=== PATIENT | female | born 1945 | race Caucasian/White ===

== ENCOUNTER 2017-11-01 05:31 | Inpatient (IN) | payer OTHER, MEDICARE ==
[2017-11-01] MEDS ORDERED: LR 1,000 ML IV ONE (05:39)
[2017-11-01] MEDS ORDERED: LIDOCAINE 1% 2 ML INJ ID PRN (05:40)
[2017-11-01] MEDS ORDERED: ALBUMIN 5% 250 ML BOTTLE IV ONE (06:05)
[2017-11-01] MEDS ORDERED: DOPamine/DEXTROSE/250 ML BAG IV ONE ×2 (06:25→19:42)
[2017-11-01] MEDS ORDERED: DEXMEDETOMIDINE/NS 4MCG/ML 50 ML BTL IV ONE ×2 (06:25→08:30)
[2017-11-01] MEDS ORDERED: BUPIVACAINE 0.5% 10 ML SDV ONE ×2 (06:56→06:57)
[2017-11-01] MEDS ORDERED: CHLORHEXIDINE GLUC HIBICLENS 118 ML BTL TP ONE (06:57)
[2017-11-01] MEDS ORDERED: THROMBIN (BOVINE) 20,000 UNIT VIAL TP ONE ×2 (06:57→12:32)
[2017-11-01] MEDS ORDERED: ACETAMINOPHEN 500 MG TAB PO ONE (06:58)
[2017-11-01] MEDS ORDERED: morphINE PF 5 MG/10 ML INJ IT ONE (06:58)
[2017-11-01] MEDS ORDERED: BACITRACIN 50,000 UNITS/10 ML SYR IRR ONE ×3 (06:58→12:51)
[2017-11-01] MEDS ORDERED: ceFAZolin 2 GM/SWFI 2 GM/20 ML SYR IVP ONE (06:58)
[2017-11-01] MEDS ORDERED: CITRATE DEXTROSE SOLN 500 ML BAG ONE ×2 (06:58→09:25)
[2017-11-01] MEDS ORDERED: GABAPENTIN 300 MG CAP PO ONE (06:58)
--- NOTE | 2017-11-01 07:07 | PDHPUP ---
History & Physical Update H&P update statement: This history and physical update is based on an assessment of the patient which was completed after admission or registration (within 24 hours), but prior to the surgery/procedure. H&P update: H&P reviewed & patient examined, no change in patient's condition since H&P completed (All questions answered and consents signed. Site marked.)
[2017-11-01] MEDS ORDERED: MIDAZOLAM 2 MG/2 ML VIAL ONE (07:09)
[2017-11-01] MEDS ORDERED: PROPOFOL/EMULSION 500 MG/50 ML BOTTLE IV ONE ×2 (07:16→10:57)
[2017-11-01] MEDS ORDERED: fentaNYL 100 MCG/2 ML INJ ONE (07:16)
[2017-11-01] MEDS ORDERED: PROPOFOL 200 MG/20 ML VIAL ONE (07:22)
[2017-11-01] MEDS ORDERED: DEXMEDETOMIDINE IN 0.9 % NACL 50 ML IV SCH (07:30)
[2017-11-01] MEDS ORDERED: *INFUSION*TRANEX ACID 1,000 MG/NS 50 ML IV ONE (08:00)
[2017-11-01] MEDS ORDERED: NS IV ONE (08:00)
[2017-11-01] MEDS ORDERED: TRANEXAMIC ACID IV ONE (08:00)
--- NOTE | 2017-11-01 09:01 | PDANEPAE ---
ANE Past Medical History - Cardiovascular History Hx Hypertension: No Hx Arrhythmias: No Hx Chest Pain: No Hx Coronary Artery / Peripheral Vascular Disease: No Hx CHF / Valvular Disease: No Hx Palpitations: No Cardiovascular History Comment: BP tends to be low, as does temp - Pulmonary History Hx COPD: Yes Hx Asthma/Reactive Airway Disease: Yes Hx Recent Upper Respiratory Infection: No Hx Oxygen in Use at Home: No Hx Sleep Apnea: No Sleep Apnea Screening Result - Last Documented: Negative Pulmonary History Comment: mild COPD, ASTHMA - Neurologic History Hx Cerebrovascular Accident: No Hx Seizures: No Hx Dementia: No - Endocrine History Hx Diabetes: No Endocrine History Comment: celiac, auto immune, grave disease and Ghada - Renal History Hx Renal Disorders: Yes Renal History Comment: over active bladder - Liver History Hx Hepatic Disorders: No - Neurological & Psychiatric Hx Hx Neurological and Psychiatric Disorders: Yes Neurological / Psychiatric History Comment: mild depression,. 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 - Cancer History Hx Cancer: No - Congenital Disorder History Hx Congenital Disorders: Yes Congenital History Comment: celiac,autoimune issues,back issues - GI History Hx Gastrointestinal Disorders: Yes Gastrointestinal History Comment: celiac - Other Health History Other Health History: GHADA'S,GRAVES DISEASE - Chronic Pain History Chronic Pain: Yes (neck and feet) - Surgical History Prior Surgeries: back fusion, thyroid cyst, hand, cataracts ANE Review of Systems Review of Systems: - Exercise capacity METS (RN): 4 METS ANE Patient History - Allergies Allergies/Adverse Reactions: gluten Allergy (Severe, Verified 06/14/16 12:46) Other-Enter Comments soy Allergy (Severe, Verified 06/14/16 12:46) Other-Enter Comments corn [[place]] Allergy (Verified 06/14/16 12:46) Other-Enter Comments garlic Allergy (Verified 11/01/17 06:02) No Allergies [NKDA] Allergy (Verified 06/14/16 12:59) onion Allergy (Verified 11/01/17 06:02) DAIRY Allergy (Intermediate, Uncoded 06/14/16 12:46) Diarrhea pain meds except Nucynta Allergy (Mild, Uncoded 06/14/16 12:46) "don't agree with me" SUGAR Allergy (Mild, Uncoded 06/14/16 12:46) Other-Enter Comments - Home Medications Home Medications: Gabapentin [Neurontin 300 MG (RX)] 300 mg PO TID 02/19/13 [Last Taken 10/31/17] Herbals/Supplements -Info Only 1 each PO AD 10/21/12 [Last Taken 10/18/17] Progesterone,Micronized [Prometrium] 100 mg PO HS 05/14/14 [Last Taken 10/31/17] Acetaminophen [Tylenol 325mg (*)] 1,300 mg PO HS 06/14/16 [Last Taken 10/31/17] Fluticasone Nasal [Flonase Nasal [place] (RX)] 1 sprays NASAL DAILY PRN 06/14/16 [ Last Taken 10/11/17] Byest + Testosterone Cream Cmp 1 shelby TP HS 10/04/17 [Last Taken 10/31/17] Byest Cream 80-20 Compound 1 shelby TP DAILY 10/04/17 [Last Taken 10/31/17] Compounded Suppository 1 each RC HS 10/04/17 [Last Taken 10/31/17] Levalbuterol Inhaler [Xopenex Hfa Inhaler (*)] 1 puffs IH DAILY PRN 10/04/17 [ Last Taken 10/25/17] Levothyroxine [Synthroid 75 mcg (*)] 75 mcg PO DAILY 10/04/17 [Last Taken 01:30] Loratadine [Claritin 10 mg] 10 mg PO DAILY PRN 10/04/17 [Last Taken 10/11/17] Loteprednol Etabonate [Alrex] 1 drop EACHEYE BID PRN 10/04/17 [Last Taken ] Mustang-3 Fatty Acids [Fish Oil 1000 mg (*)] 1,000 mg PO DAILY 10/04/17 [Last Taken 10/18/17] Teriparatide [Forteo] 2.4 ml SQ DAILY 10/07/17 [Last Taken 10/31/17] Diazepam [Valium 5 MG (*)] 5 mg PO DAILY 11/01/17 [Last Taken 11/01/17 05:00] - NPO status NPO Since - Liquids (Date): 11/01/17 NPO Since - Liquids (Time): 01:30 NPO Since - Solids (Date): 10/31/17 NPO Since - Solids (Time): 19:00 - Smoking Hx Smoking Status: Never smoked - Family Anes Hx Family Hx Anesthesia Complications: none ANE Labs/Vital Signs - Vital Signs Blood Pressure: 103/61 Heart Rate: 58 Respiratory Rate: 14 O2 Sat (%): 96 Height: 160.02 cm Weight: 54.431 kg ANE Physical Exam - Airway Neck exam: FROM Mallampati Score: Class 1 Mouth exam: normal dental/mouth exam - Pulmonary Pulmonary: no respiratory distress, no rales or rhonchi, clear to auscultation - Cardiovascular Cardiovascular: regular rate and rhythym, no murmur, rub, or gallop - ASA Status ASA Status: III ANE Anesthesia Plan Anesthesia Plan: general endotracheal anesthesia Lines/Monitors: arterial line, additional IV
[2017-11-01] MEDS ORDERED: ROCURONIUM 50 MG/5 ML VIAL ONE (09:02)
[2017-11-01] MEDS ORDERED: ONDANSETRON 4 MG/2 ML VIAL ONE (09:02)
[2017-11-01] MEDS ORDERED: RANITIDINE 50 MG/2 ML VIAL ONE (09:02)
[2017-11-01] MEDS ORDERED: LIDOCAINE 2% 5 ML SDV ONE (09:02)
[2017-11-01] MEDS ORDERED: DIAZEPAM 5 MG/ML 1 ML SYR IVP ONE (09:08)
[2017-11-01] MEDS ORDERED: ceFAZolin 1 GM VIAL ONE (09:09)
[2017-11-01] MEDS ORDERED: CALCIUM CHLORIDE 1 GM/10 ML INJ ONE (09:09)
[2017-11-01] MEDS ORDERED: BUPIVACAINE 0.25% 30 ML SDV ONE (10:08)
--- NOTE | 2017-11-01 10:42 | GOP ---
[f rep st] OPERATIVE REPORT DATE OF OPERATION: 11/01/2017 NEUROSURGEON: Tam Castro MD CO-SURGEON: Robson Vázquez MD ADHESION TESTER: WILBER Bull. ANESTHESIA: General. PREOPERATIVE DIAGNOSIS: 1. L5-S1 spondylosis with history of prior lumbar fusion L2-L5. 2. Low back pain. 3. Lower extremity radiculopathy. 4. Treatment refractory to nonoperative intervention PROCEDURE PERFORMED: 1. Anterior arthrodesis with approach to L5-S1. 2. L5-S1 diskectomy and interbody fusion using a 14 mm 12 degree perimeter PEEK cage filled with morselized allograft. 3. Anterior lumbar fusion L5-S1 with a small Medtronic Pivox plate. 4. Use of intraoperative fluoroscopy, less than 1 hour physician time. 5. Use of neuromonitoring. POSTOPERATIVE DIAGNOSIS: 1. L5-S1 spondylosis with history of prior lumbar fusion. L2-L5. 2. Low back pain. 3. Lower extremity radiculopathy. 4. Treatment refractory to nonoperative intervention FINDINGS: per imaging ESTIMATED BLOOD LOSS: 50 mL. INDICATIONS: The patient is a 72-year-old woman who has undergone a prior lumbar L2-L5 spinal fusion. She presented with progressive thoracic thoracolumbar scoliosis and L5-S1 spondylosis. After discussion of all the risks, benefits, and treatment alternatives, and after failing nonoperative interventions, we decided to proceed forth with surgery as described above. This is a 2-stage surgical planned procedure. This is stage 1 and stage 2 will be a posterior surgery dictated in an operative separate report. DESCRIPTION OF PROCEDURE: Patient was brought to operating theater, underwent general endotracheal anesthesia without complication. She had Venodynes, SHANNAN hose and the appropriate lines placed by Anesthesia. She was maintained supine on the operating table with a small bump placed under the small of her back at the lumbosacral junction. The anterior abdomen was then prepped and draped in the usual sterile surgical fashion. A time-out was completed per protocol and the patient received antibiotics within [address] Vázquez and his team will then dictate in a separate op report the anterior approach to the L5-S1 level. Once this was confirmed, we then completed an L5- S1 diskectomy after incising the disk space with an 11 blade. We prepared the cartilaginous endplates and distracted the L5-S1 disc space. We measured the interbody space and placed a 14 mm 12 degree perimeter PEEK cage with morselized allograft into the L5-S1 disk space. We secured a small Medtronic Pivox plate with 1 screw into L5 and 1 screw into S1. AP and lateral x-rays demonstrated good placement of the hardware. At this point, Dr. Vázquez and his team will dictate in a separate operative report the abdominal closure. There were no complications and no noted changes on neuromonitoring throughout this portion of the procedure. COMPLICATIONS: None. /[id number]/MODL MTDD
[2017-11-01] MEDS ORDERED: morphINE PF 5 MG/10 ML INJ ONE (12:54)
--- NOTE | 2017-11-01 13:02 | GOP ---
[f rep st] OPERATIVE REPORT DATE OF OPERATION: 11/01/2017 SURGEON: Robson Vázquez MD GENERAL PRACTITIONER: Audra Johnson NP. PREOPERATIVE DIAGNOSIS: Spinal instability. POSTOPERATIVE DIAGNOSIS: Spinal instability. PROCEDURE PERFORMED: Anterior spine exposure L5-S1. FINDINGS: Patient was found to have a relatively easy exposure of the L5-S1 space. DESCRIPTION OF PROCEDURE: Patient taken to the operating room where she received satisfactory genera l endotracheal anesthesia by Dr. Hammonds. She was placed in the supine position, and prepped and drap ed in the usual sterile fashion. A low Pfannenstiel type incision was made and carried down through the subcutaneous tissue. Rectus sheath was incised transversely and the fascial flaps were elevated up off the rectus muscles above and below the incision. The abdomen was opened in the midline. The muscles were retracted with the Omni retractor. The small bowel was packed away, exposing the L5-S1 prominence. Retroperitoneum was opened with electrocautery. Dissection was extended directly down t o the spine. The tissue over the L5-S1 joints was dissected free and retracted laterally with the Om ni retractor, retracting the iliac vessels away. The presacral vessels were multiply hemoclipped and divided. Adequate exposure was obtained. At that point, the case was turned over to Dr. Castro for anterior spine fusion when that was complete. Retroperitoneum was closed with a running 0 Vicryl sut ure. Hemostasis was assured. The peritoneum was closed with a running 0 Vicryl suture. The rectus sheath was closed with a running #1 PDS suture subcu with 3-0 Vicryl and the skin with a 3-0 Monoderm Quill suture. The wound was infiltrated with 0.5% Marcaine. She tolerated the procedure well and ta michelle to the recovery room in good condition. No complications. /[id number]/MODL
[2017-11-01] MEDS ORDERED: DIAZEPAM 5 MG/ML 1 ML SYR IVP PRN (13:20)
[2017-11-01] MEDS ORDERED: fentaNYL 100 MCG/2 ML INJ IVP PRN (13:20)
[2017-11-01] MEDS ORDERED: ONDANSETRON 4 MG/2 ML VIAL IVP PRN (13:20)
[2017-11-01] MEDS ORDERED: NALOXONE HCL 0.4 MG/ML INJ IVP PRN (13:20)
[2017-11-01] MEDS ORDERED: LR 500 ML IV PRN (13:20)
[2017-11-01] MEDS ORDERED: DEXAMETHASONE 4 MG/ML VIAL IVP PRN (13:20)
[2017-11-01] MEDS ORDERED: MEPERIDINE 25 MG/ML SYR IVP PRN (13:20)
[2017-11-01] MEDS ORDERED: ALBUTEROL 3 ML DEYVIAL IH PRN (13:20)
[2017-11-01] MEDS ORDERED: DEXMEDETOMIDINE HCL 400 MCG in NS 100 ML IV SCH (13:30)
[2017-11-01] MEDS ORDERED: PHENYLEPHRINE HCL 100 MCG/ML SYR ONE (14:06)
[2017-11-01] MEDS ORDERED: LEVALBUTEROL INHALER 200 PUFFS/15 GM MDI IH PRN (14:36)
[2017-11-01] MEDS ORDERED: LOTEPREDNOL ETABONATE EACHEYE PRN (14:36)
[2017-11-01] MEDS ORDERED: FLUTICASONE NASAL 120 SPRAYS/16 GM MDI EACHNARE PRN (14:36)
[2017-11-01] MEDS ORDERED: MAGNESIUM HYDROXIDE 30 ML UDCUP PO PRN (14:41)
[2017-11-01] MEDS ORDERED: diphenhydrAMINE 25 MG CAP PO PRN (14:41)
[2017-11-01] MEDS ORDERED: HYDROmorphONE/DILAUDID 1 MG/ML INJ IVP PRN (14:41)
[2017-11-01] MEDS ORDERED: BISACODYL 10 MG SUPP PR PRN (14:41)
[2017-11-01] MEDS ORDERED: PROMETHAZINE HCL 25 MG/ML INJ IVP PRN (14:41)
[2017-11-01] MEDS ORDERED: POLYETHYLENE GLYCOL 3350 17 GM PKT PO PRN (14:41)
[2017-11-01] MEDS ORDERED: LACTULOSE 20 GM/30 ML UDCUP PO PRN (14:41)
[2017-11-01] MEDS ORDERED: SCOPOLAMINE HYDROBROMIDE 1 MG/3 DAYS PATCH TD PRN (14:47)
--- NOTE | 2017-11-01 14:53 | POSTOPPROG ---
Post Op Note Date of Operation: 11/01/17 Surgeon: Abril Hollis Hide Selector: Christiana Hollis PA-C Anesthesiologist: Cassius Anesthesia: GET(General Endotracheal) Pre-op Diagnosis: pseudoarthrosis, lumbar stenosis, scoliosis Post-op Diagnosis: pseudoarthrosis, lumbar stenosis, scoliosis Indication: nerve compression, pain, non-union Procedure: L5/S1 ALIF, posterior lumbar HW removal, T12-S2 PSF with L1-2 TLIF Findings: Please see dictation Inf/Abcess present in the surg proc area at time of surgery?: No Depth: Organ Space EBL: 100-500 Complications: none Drains: Aakash Rodgers Specimen(s): none PA Addendum - Addendum .: S: Pt awake in PACU O: AAOx3 NAD VSS MAEx4 Motor 5/5 BUE/BLE Incisions dressed cdi JPx1 Strong in A: 72 yo F s/p L5/S1 ALIF, posterior lumbar HW removal, T12-S2 PSF with L1-2 TLIF P: Precedex in ICU Pain management Brace when OOB - pt's to bring brace from home TEDs, SCDs, lovenox POD#2 Follow RICKIE output DC strong in AM Diet per gen surg Call NS with any questions/concerns D/w Dr Castro
--- NOTE | 2017-11-01 15:48 | POSTANESTH ---
Post Anesthetic Evaluation Cardiovascular Status: Normal, Stable Respiratory Status: Normal, Stable Level of Consciousness/Mental Status: Can Participate in Eval Pain Control: Adequate, Prn Tx Ordered Nausea/Vomiting Control: Adequate, Prn Tx Ordered Complications Possibly Related to Anesthesia: None Noted (patient has a small lesion on the right side of her tongue, possible the biteblock slipped when we moved her prone. I explained to the patient what happened and apologized for the incident)
--- NOTE | 2017-11-01 15:54 | GOP ---
[f rep st] OPERATIVE REPORT DATE OF OPERATION: 11/01/2017 SURGEON: Tam Castro MD NEUROSURGEON: Tam Castro MD SET AND EXHIBIT DESIGNER: ADE Daily ANESTHESIA: General. PREOPERATIVE DIAGNOSIS: 1. L5-S1 spondylosis with adjacent level scoliosis with history of prior fusion L2 through L5. 2. Back pain. 3. Lower extremity radiculopathy. 4. Treatment refractory to nonoperative intervention PROCEDURE PERFORMED: 1. Posterior arthrodesis with approach to T12, L1, L2, L3, L4, L5, S1, and S2. 2. Exploration of prior lumbar hardware L2 through L5 with subsequent removal of segmental hardware. 3. Posterolateral fusion with bilateral pedicle screw placement into T12, L1, and S1 bilaterally from the Medtronic Solera 4.75 system. 4. Bilateral S2 alar-iliac screws from the Medtronic Solera 4.75 system. 5. Posterolateral fusion bilaterally between T12-L1, right-sided L1-L2 and bilaterally L5-S1 with morselized autograft and allograft. 6. Decompressive laminectomy with bilateral medial facetectomies, L1-L2. 7. Left-sided L1-L2 transforaminal lumbar interbody fusion with an 8 x 26 mm titanium coated PEEK cage with morselized autograft and allograft. 8. Use of intraoperative 3D Stealth navigation. 9. Use of intraoperative fluoroscopy, less 1 hour physician time. 10. Use of neuromonitoring. 11. Use of the operating microscope. 12. Injection of preservative-free intrathecal narcotics. POSTOPERATIVE DIAGNOSIS: 1. L5-S1 spondylosis with adjacent level scoliosis with history of prior fusion L2 through L5. 2. Back pain. 3. Lower extremity radiculopathy. 4. Treatment refractory to nonoperative intervention FINDINGS: per imaging SPECIMENS: None. ESTIMATED BLOOD LOSS: 200 mL. INDICATIONS: The patient is a 72-year-old, who has undergone a prior L2 through L5 fusion by Dr. Givens several years ago from which she did quite well. She presented with progressive thoracic scoliosis adjacent to her prior fusion as well as spondylosis at the L1-L2 and L5-S1 levels. After failing nonoperative interventions, after discussion of risks, benefits, and treatment alternatives, we decided to proceed forth with surgery as described above. DESCRIPTION OF PROCEDURE: The patient was still asleep at the completion of stage 1 of the anterior lumbar interbody fusion L5-S1. At this point, she was flipped prone onto the Aakash table and all bony prominences inspected and padded. The previous lumbar incision was identified and marked more cranially and caudally. This was infiltrated with Marcaine with epinephrine. The incision was taken down with the scalpel blade and then, using monopolar, taken down the midline through the lumbodorsal fascia and subperiosteal dissection carried out to the transverse process of T12, L1 and L2. At L2, we identified the prior hardware and and skeletonized the remainder of the hardware L2, L3, L4 , and L5 and then continued with our dissection down to the S1-S2 levels. The patient's hardware was noted to be quite encased in bone between L2 and L5 and we used chisels and Leksell rongeurs to remove the bone from around the screws and rods. We sequentially removed the cap screws from the bilateral L2 through L5 levels and passed them off the field. We then removed the bilateral rods. We then used a distraction device to explore the hardware between L2-L3, L3-L4, and L4-L5 and she was noted to have no motion which is consistent with a solid fusion. At this point we attached the 3D stealth navigation clamp to the spinous process of L2 and completed a 3D Stealth navigation spin. Using 3D Stealth navigation, we placed the helicopter pilot holes for the bilateral pedicle screws into L5. Both holes were manually palpated with no evidence of any cortical breaches. We then tapped and placed 6.5 x 50 mm screws bilaterally in S1. We then used the drill to place S2 alar screws across the SI joint in the pelvis bilaterally. We drilled, tapped and placed 7.5 x 70 mm screws. Another 3D stealth navigation spin demonstrated good placement of the hardware. At this point, we moved up to the T12-L1 level. We again completed a 3D Stealth navigation spin. Using 3D Stealth navigation, we placed the helicopter pilot holes for the bilateral pedicle screws at T12 and L1. All holes were manually palpated with no evidence of any cortical breaches. We then tapped and placed 6.5 x 50 mm screws bilaterally into T12 and L1. Another 3D Stealth navigation spin demonstrated good placement of the hardware. At this point, the microscope was brought into the field to assist with microscopic dissection and to maintain illumination and magnification. Using a combination of bur tip on the drill bit , [place] punches and Leksell rongeur, we completed decompressive laminectomy with bilateral medial facetectomies L1-L2. We completed an aggressive facetectomy on the left at L1-L2 and completed a foraminotomy. We then completed left L1-L2 diskectomy. We prepared the cartilaginous endplates and measured the interbody space. We placed a 8 x 26 mm titanium coated PEEK cage with morselized autograft and allograft anteriorly and toward the midline. We packed additional morcellized autograft into the disk space for the interbody fusion. We decorticated the bone bilaterally between T12 and L1 and right-sided L1-L2 and bilaterally at L5-S2. We placed morselized autograft and allograft bilaterally between T12-L1, right-sided L1-L2 and bilaterally from L5-S2. We then placed 2 rods into the heads of the screws between T12 and S2 and, using compression on the right, distraction on the left and some correction of her scoliosis, we then locked the rods into the heads of the screws between T12 and S2 and secured them down with cap screws, which were then tightened to the horse show judge's setting. We injected preservative-free intrathecal narcotics. The wound was irrigated copiously with bacitracin irrigation and a drain left in the subfascial space. The wound was closed in multiple layers including Vicryl sutures for the deep layers and Dermabond for the skin. The patient's wounds were dressed sterilely. She was then flipped supine onto the transfer cart. She was awakened, extubated, and taken to recovery room in stable condition. There were no complications and no noted changes on neuromonitoring throughout the procedure. COMPLICATIONS: None. /[id number]/MODL MTDD
--- NOTE | 2017-11-01 16:09 | ASMTCASEMG ---
Living Arrangements What is your living Answers: With Spouse arrangement? Who do you live with? Type Of Residence What kind of residence do Answers: House you live in? Discharge Plan Comments Coordination Status Comments Notes: Patient is a 72yo female who was admitted for spinal surgery. OT/PT have been ordered. Patient had surgery today. D/C needs TBD. CM will follow. Date Signed: 11/01/2017 04:08 PM Electronically Signed By:Melanie Zuniga LCSW
--- NOTE | 2017-11-01 16:15 | POSTANESTH ---
Post Anesthetic Evaluation Cardiovascular Status: Normal, Stable Respiratory Status: Normal, Stable Level of Consciousness/Mental Status: Can Participate in Eval Pain Control: Adequate, Prn Tx Ordered Nausea/Vomiting Control: Adequate, Prn Tx Ordered Complications Possibly Related to Anesthesia: None Noted (Patient with small lesion on the right side of her tongue. Most likely, the bite blocks shifted when we placed the patient prone. I explained to the patient what happened and apologized)
--- NOTE | 2017-11-01 16:57 | PDMN ---
Medical Necessity Medical necessity: Pt meets IP criteria per MD; admit to ICU s/p L5/S1 ALIF, posterior lumbar hardware removal, T12-S2 PSF w/L1-2 TLIF (CPT 73229, [id number], [id number]); [facility] IP only surgery; per H&P & order 11/01/17
[2017-11-01] MEDS: GABAPENTIN 300 MG CAP PO SCH ×2 (17:05→22:26)
[2017-11-01] MEDS ORDERED: ALBUMIN 5% 500 ML BOTTLE IV ONE (17:11)
[2017-11-01] MEDS ORDERED: ALBUMIN 5% 500 ML IV ONE (17:18)
--- NOTE | 2017-11-01 17:30 | NEUSURGPN ---
Assessment/Plan: A: 72 yo F s/p L5-S1 ALIF, L1-2 TLIF with lumbar hardware exploration/removal and T12-S2 PSF P: -pt seen in ICU after low BP of 70s/30s, remained stable. Dr. Hammonds anesthesiologist saw pt and ordered albumin. BP trending up 80s/40s. Pt saw PCP for medical clearance prior to surgery. Has low bp at baseline with SBP ~104 per pt and . Precedex is off. Will consult hospitalists. D/w Dr Castro. Please call NS with any questions or concerns. Subjective: Pt resting in bed, denies pain. and RN at bedside. Objective: AAOx3 NAD BP 80/40s, respirations nonlabored MAEx4 Motor 5/5 BLE +LT Urinary Catheter in Place: Yes Urinary Catheter Indication: Surgical Requirement - Physician Discussed Patient with Dr.: Castro Neurosurgery Physical Exam - Vitals, I&O, Labs I and O 10/31/17 11/01/17 11/02/17 05:59 05:59 05:59 Intake Total 2200 Output Total 900 Balance 1300 Weight 54.431 kg Intake: IV Intake (ml) 2200 Output: Urine (ml) 500 Catheter 500 Estimated Blood Loss (ml) 300 RICKIE Drain Output (ml) 100 Posterior Back 100 Vital Signs Temp Pulse Resp BP Pulse Ox 36.5 C 70 20 81/40 L 96 11/01/17 16:45 11/01/17 17:23 11/01/17 17:23 11/01/17 17:23 11/01/17 17:23 ICD10 Worksheet Patient Problems: Problems Problem Status Onset Pseudoarthrosis of lumbar spine Acute - ICD10 Problem Qualifiers (1) Pseudoarthrosis of lumbar spine
[2017-11-01] MEDS ORDERED: ALTEPLASE 2 MG VIAL IVP PRN ×2 (17:35→19:07)
[2017-11-01] MEDS ORDERED: NS 1,000 ML IV ONE (17:37)
--- NOTE | 2017-11-01 18:33 | PDHOSCONS ---
History and Physical - Chief Complaint Acute hypotension - History of Present Illness Primary care provider: Dr. Kiet Gregory Primary neurosurgeon: Dr. Tam Castro HPI: 72-year-old female presenting for elective staged lumbar fusion complicated by acute hypotension postoperatively. I was consulted by the neurosurgery service to evaluate the patient for hypotension characterized by systolic blood pressure of 71/33 following transfer to the ICU. The patient had estimated blood loss of approximately 250 cc perioperatively, and she received 1 L of normal saline during her surgery. While the patient was in postop recovery, the patient had systolic blood pressures in the 80s and received a 2nd L of IV fluids. She was transferred to the ICU, was seen by the anesthesiologist, and was administered IV albumin 500 cc. Her systolic blood pressure did improve to 80/40. On my evaluation of the patient, she reports that she is not experiencing any pain and the only postoperative pain medication she has received his Precedex in the PACU, which has been weaned off. She currently denies any paresis or paresthesias and she currently has a Strong catheter in. Since her surgery, she has drained 80 cc from her RICKIE drain, and she has produced 100 cc of urine output. She denies any aspiration or infectious symptoms. History Information - Allergies/Home Medication List Allergies/Adverse Reactions: gluten Allergy (Severe, Verified 06/14/16 12:46) Other-Enter Comments soy Allergy (Severe, Verified 06/14/16 12:46) Other-Enter Comments corn [[place]] Allergy (Verified 06/14/16 12:46) Other-Enter Comments garlic Allergy (Verified 11/01/17 06:02) No Allergies [NKDA] Allergy (Verified 06/14/16 12:59) onion Allergy (Verified 11/01/17 06:02) DAIRY Allergy (Intermediate, Uncoded 06/14/16 12:46) Diarrhea pain meds except Nucynta Allergy (Mild, Uncoded 06/14/16 12:46) "don't agree with me" SUGAR Allergy (Mild, Uncoded 06/14/16 12:46) Other-Enter Comments Home Medications: Gabapentin [Neurontin 300 MG (RX)] 300 mg PO TID 10/21/12 [Last Taken 10/31/17] Herbals/Supplements -Info Only 1 each PO AD 10/21/12 [Last Taken 10/18/17] Progesterone,Micronized [Prometrium] 100 mg PO HS 05/14/14 [Last Taken 10/31/17] Acetaminophen [Tylenol 325mg (*)] 1,300 mg PO HS 06/14/16 [Last Taken 10/31/17] Fluticasone Nasal [Flonase Nasal [place] (RX)] 1 sprays NASAL DAILY PRN 06/14/16 [ Last Taken 10/11/17] Byest + Testosterone Cream Cmp 1 shelby TP HS 10/04/17 [Last Taken 10/31/17] Byest Cream 80-20 Compound 1 shelby TP DAILY 10/04/17 [Last Taken 10/31/17] Compounded Suppository 1 each RC HS 10/04/17 [Last Taken 10/31/17] Levalbuterol Inhaler [Xopenex Hfa Inhaler (*)] 1 puffs IH DAILY PRN 10/04/17 [ Last Taken 10/25/17] Levothyroxine [Synthroid 75 mcg (*)] 75 mcg PO DAILY 10/04/17 [Last Taken 01:30] Loratadine [Claritin 10 mg] 10 mg PO DAILY PRN 10/04/17 [Last Taken 10/11/17] Loteprednol Etabonate [Alrex] 1 drop EACHEYE BID PRN 10/04/17 [Last Taken ] [place]-3 Fatty Acids [Fish Oil 1000 mg (*)] 1,000 mg PO DAILY 10/04/17 [Last Taken 10/18/17] Teriparatide [Forteo] 2.4 ml SQ DAILY 10/07/17 [Last Taken 10/31/17] Diazepam [Valium 5 MG (*)] 5 mg PO DAILY 11/01/17 [Last Taken 11/01/17 05:00] I have personally reviewed and updated: family history, medical history, social history, surgical history - Past Medical History Additional medical history: Baseline low blood pressure between 100 and 110. Mild COPD, only uses albuterol inhaler. Celiac disease. Hypothyroidism. Tinnitus. Recurrent urinary tract infections between 6614-7902 with tetracyclines and Bactrim resistant E coli. Chronic lower back pain with previous lumbar surgery for spondylolisthesis - Surgical History Additional surgical history: DLIF at L2-L5 with PSF from L2-L5 in 2013. Cataract surgery in 2017 - Family History Additional family history: Baseline low blood pressures, father with permanent pacemaker - Social History Smoking Status: Former smoker Alcohol Use: None Drug Use: None Additional social history: Normally independent in ADLs Review of Systems Review of Systems: ROS: 10pt was reviewed & negative except for what was stated in HPI & below Muscolosketal: Reports: back pain (Minimal) Physical Exam Physical Exam: Temp Pulse Resp BP Pulse Ox 36.5 C 70 17 90/39 L 99 11/01/17 16:45 11/01/17 18:00 11/01/17 18:00 11/01/17 18:00 11/01/17 18:00 O2 (L/minute) 2 Constitutional: no apparent distress, appears nourished, not in pain Eyes: PERRL, anicteric sclera, EOMI Ears, Nose, Mouth, Throat: moist mucous membranes, hearing normal, ears appear normal, no oral mucosal ulcers Cardiovascular: regular rate and rhythym, no murmur, rub, or gallop, No edema Respiratory: no respiratory distress, no rales or rhonchi, clear to auscultation Gastrointestinal: soft, non-tender abdomen, no palpable masses, No normoactive bowel sounds (Hypoactive bowel sounds), No distension Genitourinary: no bladder fullness, no bladder tenderness, strong in urethra Skin: No abrasion (Around surgical site), No erythema Neurologic: AAOx3, sensation intact bilaterally, No weakness (Motor strength 5/ 5 bilateral distal lower extremities), No facial droop Psychiatric: interacting appropriately, not anxious, not encephalopathic, thought process linear, poor memory Lab Data & Imaging Review Patient ABO/Rh O POSITIVE 10/28/17 07:20 Antibody Screen NEGATIVE 10/28/17 07:20 Assessment & Plan Assessment: 72-year-old female presenting for elective staged anterior and posterior lumbar fusion, complicated by acute hypotension Plan: 1. Hypotension. Acute, new problem this provider, further workup indicated. Unclear etiology, patient's systolic blood pressure has been somewhat refractory to appropriate IV fluid bolusing, but she is not tachycardic or demonstrating any evidence of sepsis and she is not on any blood pressure lowering opiates -maintain arterial line for accurate monitoring -get PICC line so we can monitor CVP, administer pressors if needed given her neurosurgical procedure and need to maintain good perfusion pressures -discussed with RN, will get night, fluid challenge right now to determine whether ongoing fluids will be of benefit -she is currently receiving her 3rd L of normal saline, will continue normal saline maintenance at 150/hour thereafter -she is status post 500 cc of albumin, will hold on additional bolusing -get lactic acid level, blood cultures, troponin level, CBC and BMP -40 min of critical care time spent with this patient, remains high risk of worsening morbidity and/or mortality and is critically ill secondary to this issue 2. Spondylolisthesis. Postop day 0 from anterior and posterior stage lumbar fusion by Dr Castro -pain management at the discretion of the primary neurosurgery team, currently recommend very minimal doses of opiates if possible given her hypotension -patient is currently pain-free, and I would recommend holding on opiates at this time if possible -high risk for DVT, currently on SCDs, recommend initiating prophylactic anticoagulation at 48-72 hours postoperatively if no bleeding and if RICKIE drain output slows 3. COPD. Chronic, mild, currently no evidence of reactive airways Hospital Medicine will continue to see this patient daily, please contact Hospital Medicine this evening for any blood pressure issues.
[2017-11-01 18:34] LABS: PLATELET COUNT 168 10^3/uL (150-400)
[2017-11-01] MEDS ORDERED: NOREPINEPHRINE/NS 500 ML IV SCH (20:00)
[2017-11-01] MEDS ORDERED: NOREPINEPHRINE BITARTRATE 4 MG in D5W 500 ML IV SCH (20:00)
[2017-11-01] MEDS ORDERED: LIDOCAINE 1% 300 MG/30 ML SDV ONE (20:06)
[2017-11-01] MEDS: ONDANSETRON 4 MG/2 ML VIAL IVP PRN (20:08)
[2017-11-01] MEDS: NS W/ 20 KCl/L 1,000 ML IV SCH (20:54)
[2017-11-01] MEDS: ceFAZolin 2 GM/SWFI 2 GM/20 ML SYR IVP SCH (21:29)
[2017-11-01] MEDS: ONDANSETRON DISINTEGRATING 4 MG TAB PO PRN (21:29)
[2017-11-01] MEDS ORDERED: ceFAZolin 2 GM/DEXTROSE 100 ML IV SCH (22:00)
[2017-11-01] MEDS: FAMOTIDINE 20 MG TAB PO SCH (22:25)
[2017-11-01] MEDS: PROGESTERONE,MICR 100 MG CAP PO SCH (22:26)
[2017-11-01] MEDS: ACETAMINOPHEN 500 MG TAB PO SCH (22:26)
[2017-11-01] MEDS: SENNOSIDES/DOCUSATE SODIUM TAB PO SCH (22:26)
[2017-11-02] MEDS: ceFAZolin 2 GM/SWFI 2 GM/20 ML SYR IVP SCH (04:09)
[2017-11-02 04:41] LABS: PLATELET COUNT 173 10^3/uL (150-400)
[2017-11-02] MEDS: ACETAMINOPHEN 500 MG TAB PO SCH ×3 (06:35→22:31)
[2017-11-02] MEDS: ONDANSETRON 4 MG/2 ML VIAL IVP PRN ×3 (07:40→17:03)
[2017-11-02] MEDS: HYDROmorphONE/DILAUDID 2 MG/ML INJ IVP PRN ×2 (07:50→12:11)
[2017-11-02] MEDS ORDERED: CETIRIZINE 10 MG TAB PO PRN (09:00)
[2017-11-02] MEDS: NS W/ 20 KCl/L 1,000 ML IV SCH ×2 (09:25→19:34)
--- NOTE | 2017-11-02 09:29 | SOAPPROG ---
SOAP Progress Note Assessment/Plan: Assessment/Plan: 72yo F POD#1 s/p anterior exposure for TLIF - VSS, HDS - abdomen is soft, incision is covered with clean dressing - bowel sound shypoactive, she is nauseated. Cont clears, doing well with ice chips and sips - scop patch added this AM, hopefully will help inconjunction with IV meds. 11/02/17 09:28 Subjective: nauseated Objective: Vital Signs Temp Pulse Resp BP Pulse Ox 35.5 C L 56 L 14 102/35 L 94 11/02/17 08:00 11/02/17 08:00 11/02/17 08:00 11/02/17 08:00 11/02/17 08:00 Laboratory Results 11/02/17 04:10 11/02/17 04:10 11/01/17 11/02/17 11/03/17 05:59 05:59 05:59 Intake Total 5611.7 Output Total 3300 Balance 2311.7 ICD10 Worksheet Patient Problems: Problems Problem Status Onset Pseudoarthrosis of lumbar spine Acute
--- NOTE | 2017-11-02 09:37 | HOSPPROG ---
Hospitalist Progress Note Assessment/Plan: Post-op hypotension - suspect intra-operative precedex and opiates playing a role, requiring 8 mcg/min dopamine. Poor oral intake. -cont IVF's -d/c precedex to see if this helps her BP -could be candidate for low dose ketamine drip for pain control since doesn' t tolerate opiates well, though would like to see off dopamine first -advance diet as able N/V - ?opioid side effect -supportive care with anti-emetics Spondylolysthesis s/p AP lumbar fusion, POD #1 - followed by neurosurg -pain control with scheduled tylenol, prn dilaudid for now -consider addition of ketamine as above, discussed with anesthesia COPD - stable Full code Dispo - cont ICU, inpt. Discussed with Dr. Banuelos, pharmacy and care team Subjective: Pt is tired, hard time getting rest. C/O ongoing N/V, cannot tolerate pills. No fevers. No CP or SOB. Objective: Vital Signs Temp Pulse Resp BP Pulse Ox 35.5 C L 56 L 14 102/35 L 94 11/02/17 08:00 11/02/17 08:00 11/02/17 08:00 11/02/17 08:00 11/02/17 08:00 Laboratory Results 11/02/17 04:10 11/02/17 04:10 11/01/17 11/02/17 11/03/17 05:59 05:59 05:59 Intake Total 5611.7 Output Total 3300 Balance 2311.7 - Physical Exam Constitutional: no apparent distress Eyes: PERRL Ears, Nose, Mouth, Throat: moist mucous membranes Cardiovascular: regular rate and rhythym Respiratory: no respiratory distress, clear to auscultation Gastrointestinal: normoactive bowel sounds, soft, non-tender abdomen Skin: warm Musculoskeletal: full muscle strength Neurologic: AAOx3 Psychiatric: interacting appropriately ICD10 Worksheet Patient Problems: Problems Problem Status Onset Pseudoarthrosis of lumbar spine Acute
--- NOTE | 2017-11-02 10:05 | SOAPPROG ---
SOAP Progress Note Assessment/Plan: Assessment: 72 yo F s/p L5-S1 ALIF, L1-2 TLIF with lumbar hardware exploration/removal and T12-S2 PSF Nauseated with emesis this AM. PLAN: -Continue ICU through today -Scopalomine patch placed for nausea -Continue Dopamine and IV fluids. She got 1 unit PRBC, 2 liters crystalloid and 5oo albumin last night and BP responded well to that. -Pt/Ot as tolerated today in brace -Discussed with Dr. Emery Subjective: Pt resting in bed, denies pain. Sister and RN at bedside. Objective: Neuro: AAOx3 NAD MAEx4 Motor 5/5 BLE +LT Urinary Catheter in Place: Yes Urinary Catheter Indication: Surgical Requirement Dressing: CDI RICKIE: 220ml/12 hrs 11/02/17 10:06 Subjective: awake, alert, pain controlled. Nauseated with emesis this AM. Patient maintaining positive attitude. Objective: Vital Signs Temp Pulse Resp BP Pulse Ox 35.5 C L 46 L 12 110/44 L 93 11/02/17 08:00 11/02/17 09:00 11/02/17 09:00 11/02/17 09:00 11/02/17 09:00 Laboratory Results 11/02/17 04:10 11/02/17 04:10 11/01/17 11/02/17 11/03/17 05:59 05:59 05:59 Intake Total 5611.7 Output Total 3300 Balance 2311.7 ICD10 Worksheet Patient Problems: Problems Problem Status Onset Pseudoarthrosis of lumbar spine Acute
[2017-11-02] MEDS ORDERED: ACETAMINOPHEN 650 MG SUPP PR PRN (11:07)
[2017-11-02] MEDS: FAMOTIDINE 20 MG TAB PO SCH (12:58)
[2017-11-02] MEDS: GABAPENTIN 300 MG CAP PO SCH ×3 (12:58→21:14)
[2017-11-02] MEDS: SENNOSIDES/DOCUSATE SODIUM TAB PO SCH ×2 (12:59→21:15)
[2017-11-02] MEDS: LEVOTHYROXINE 75 MCG TAB PO SCH (12:59)
[2017-11-02] MEDS: Teriparatide [Forteo] SQ SCH (13:00)
[2017-11-02] MEDS: FAMOTIDINE 20 MG/NACL 50 ML IV SCH ×2 (13:46→20:54)
[2017-11-02] MEDS ORDERED: ALBUMIN 5% 500 ML IV ONE (14:49)
[2017-11-02] MEDS ORDERED: morphINE PCA 30 MG/30 ML PCA IV ONE (15:15)
[2017-11-02] MEDS ORDERED: morphINE PCA 30 MG/30 ML PCA IV PRN (15:19)
[2017-11-02] MEDS ORDERED: NALOXONE HCL 0.4 MG/ML INJ IVP PRN (15:19)
[2017-11-02] MEDS: LIDOCAINE 4%/MENTHOL 1% PATCH TD SCH (15:22)
[2017-11-02] MEDS: PROCHLORPERAZINE MALEATE 25 MG SUPPR PR PRN (15:23)
--- NOTE | 2017-11-02 15:28 | GCON ---
[f rep st] CONSULTATION PULMONARY/CRITICAL CARE CONSULTATION. DATE OF CONSULTATION: 11/02/2017 REFERRING PHYSICIAN: Tam Castro MD REASON FOR REFERRAL: Evaluation and management of hypotension, nausea, and pain. HISTORY OF PRESENT ILLNESS: The patient is a 72-year-old woman with a prior history of back pain and surgery who yesterday underwent removal of hardware and bilateral fusion/laminectomies at levels T12 -S1, with both posterior and anterior/abdominal approaches. The estimated blood loss was approximate ly 250 cc. In postop recovery, the patient had systolic blood pressure in the 80s and was transferre d to the ICU. She was given more IV fluids and started on dopamine. She was also started on Precede x in the PACU. She has had just a small amount of drainage, and no jad blood from her operative dr aravind. She was kept on dopamine and low-dose Precedex overnight. Today, she reports back pain is 7-8 /10. She has been getting p.r.n. Dilaudid IV. The Precedex was weaned off this morning and there platt s been no significant change in her pain. She reports nausea is present pretty much all the time. I t is worse with talking or trying to move. PAST MEDICAL HISTORY: 1. Baseline low blood pressure. 2. Mild COPD. 3. Hypothyroidism. 4. Recurrent urinary tract infections, none for several years. MEDICATIONS: At admission, included Neurontin, progesterone, Flonase, Claritin, Xopenex, Synthroid, Forteo, and Valium. ALLERGIES: No medication allergies. Multiple food allergies. SOCIAL HISTORY: The patient is a former smoker. FAMILY HISTORY: Unremarkable. REVIEW OF SYSTEMS: A 10-point review of systems adds nothing to the history of present illness. PHYSICAL EXAMINATION: GENERAL: The patient is awake and alert. She is in mild distress with any mo vement to pain and nausea. VITAL SIGNS: Blood pressure is 97/39 and heart rate is 45-50 on dopamine at 8. Her CVP is 5. Oxygen saturations are 95% on 2 L. She is afebrile. HEENT: Normocephalic an d atraumatic. No icterus. NECK: No JVD. Trachea is midline. CHEST: Clear to auscultation. CARD IAC: Regular rate bradycardia without murmur. ABDOMEN: Soft. She is diffusely tender. Bowel soun ds are absent. EXTREMITIES: No clubbing, cyanosis, or edema. NEURO: The patient is awake and aler t. Motor exam is limited by the patient's pain. LABORATORY/IMAGING: Hemoglobin is 11.4 after transfusion of 1 unit of packed red blood cells, white blood count is 10.3. Chemistry group is unremarkable. Glucose is 133. Blood gas showed a showed a lactate level of 3.0 postoperatively. By early this morning, it was 0.7. Chest x-ray shows clear lung mcdaniel. Images reviewed by me. ASSESSMENT: 1. Status post lumbar spine surgery with posterior and anterior approaches. The patient is having s ignificant pain. This is currently being managed with IV Dilaudid. She was previously on Precedex w ith marginal benefit. 2. Hypotension. The patient continues to have hypotension. Her CVP is on the low side, but she had hypotension earlier this morning even her CVP was higher. This is likely due to post-anesthesia vas odilation and loss of sympathetic response, as well as blood loss. She has reasonable urine output a nd no other signs of organ dysfunction, with the exception of probable ileus. 3. Nausea. Likely related to anesthesia and pain. She continues to have significant nausea despite the use of ondansetron. 4. Probable ileus, postoperative. 5. Bradycardia. RECOMMENDATIONS: 1. Try adding a Lidoderm patch pain for pain control. Try to minimize narcotics to avoid worsening the ileus, although the patient will likely require some narcotic pain medication. Precedex did not seem to be much help, but trying this again might potentially have some benefit now. 2. We will give a bolus of albumin to see if that helps her blood pressure. 3. A trial of Compazine suppository to see if that helps with her nausea. 4. Precedex will be re-tried if she continues to have pain and her hemodynamics tolerate it. /[id number]/MODL
[2017-11-02] MEDS ORDERED: PROTOCOL CALCIUM 1 DOSE IV PRN (17:16)
[2017-11-02] MEDS: POTASSIUM Cl (KCl) 20 MEQ in 1/2 NS 1,000 ML IV SCH (20:21)
[2017-11-02] MEDS ORDERED: DIAZEPAM 5 MG/ML 1 ML SYR IVP PRN (20:46)
[2017-11-02] MEDS ORDERED: METHOCARBAMOL 1000 MG/10 ML VIAL IVP PRN ×2 (20:46)
[2017-11-02] MEDS: PROGESTERONE,MICR 100 MG CAP PO SCH (21:14)
[2017-11-02] MEDS: PATCH REMOVAL 1 EA PATCH TD SCH (21:14)
[2017-11-03] MEDS: ONDANSETRON 4 MG/2 ML VIAL IVP PRN (01:45)
[2017-11-03] MEDS: ACETAMINOPHEN 500 MG TAB PO SCH ×3 (04:29→21:28)
[2017-11-03] MEDS: LEVOTHYROXINE 75 MCG TAB PO SCH (04:29)
[2017-11-03] MEDS ORDERED: CALCIUM GLUCONATE 1 GM in D5W 50 ML IV ONE (05:15)
[2017-11-03] MEDS: POTASSIUM Cl (KCl) 20 MEQ in 1/2 NS 1,000 ML IV SCH ×2 (05:52→18:33)
[2017-11-03] MEDS: PROCHLORPERAZINE MALEATE 25 MG SUPPR PR PRN (07:59)
[2017-11-03] MEDS: FAMOTIDINE 20 MG/NACL 50 ML IV SCH ×2 (07:59→21:27)
[2017-11-03] MEDS: DIAZEPAM 5 MG TAB PO PRN ×2 (07:59→15:52)
[2017-11-03] MEDS: ENOXAPARIN 40 MG/0.4 ML SYR SC SCH (08:00)
[2017-11-03] MEDS: LIDOCAINE 4%/MENTHOL 1% PATCH TD SCH (08:00)
--- NOTE | 2017-11-03 09:11 | SOAPPROG ---
SOAP Progress Note Assessment/Plan: Assessment: 72 yo F s/p L5-S1 ALIF, L1-2 TLIF with lumbar hardware exploration/removal and T12-S2 PSF Nauseated improved today. 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 Neuro stable PLAN: -Continue ICU through today given need for pressors -Scopalomine patch for nausea -Continue Dopamine and IV fluids. -Continue RICKIE -Pt/Ot as tolerated today in brace -Discussed with Dr. Emery Subjective: Pt resting in bed, denies pain. Sister and RN at bedside. Nausea improved and took small bites of applesauce. denies numbness tingling or weakness Objective: Neuro: AAOx3 NAD MAEx4 Motor 5/5 BLE +LT Urinary Catheter in Place: Yes Urinary Catheter Indication: Surgical Requirement Dressing: CDI x 2 RICKIE: 160ml/overnight 11/03/17 09:11 Objective: Vital Signs Temp Pulse Resp BP Pulse Ox 36.2 C 63 14 91/41 L 96 11/03/17 08:00 11/03/17 08:48 11/03/17 08:48 11/03/17 08:48 11/03/17 08:48 Laboratory Results 11/02/17 04:10 11/03/17 04:20 11/02/17 11/03/17 11/04/17 05:59 05:59 05:59 Intake Total 5611.7 3602 Output Total 3300 1640 40 Balance 2311.7 19640 ICD10 Worksheet Patient Problems: Problems Problem Status Onset Pseudoarthrosis of lumbar spine Acute
[2017-11-03] MEDS: GABAPENTIN 300 MG CAP PO SCH ×3 (10:10→21:28)
[2017-11-03] MEDS: SENNOSIDES/DOCUSATE SODIUM TAB PO SCH ×2 (10:12→21:28)
[2017-11-03] MEDS: Teriparatide [Forteo] SQ SCH (10:12)
--- NOTE | 2017-11-03 11:03 | SOAPPROG ---
SOAP Progress Note Assessment/Plan: Assessment/Plan: 72yo F POD#2 s/p anterior exposure for TLIF - VSS, HDS -abdomen remains soft with good bowel sounds. Silver impregnated dressing left in place, steris visible underneath and are c/d/i - ADAT, she is still nauseated but I think its more from meds and less physiologic. Will see how she does with something more than ice chips 11/02/17 09:28 11/03/17 11:03 Subjective: a little loopy this AM Objective: Vital Signs Temp Pulse Resp BP Pulse Ox 36.2 C 63 13 94/47 L 96 11/03/17 08:00 11/03/17 10:51 11/03/17 10:51 11/03/17 10:51 11/03/17 10:51 Laboratory Results 11/02/17 04:10 11/03/17 04:20 11/02/17 11/03/17 11/04/17 05:59 05:59 05:59 Intake Total 5611.7 3602 Output Total 3300 1640 40 Balance 2311.7 1962 -40 ICD10 Worksheet Patient Problems: Problems Problem Status Onset Pseudoarthrosis of lumbar spine Acute
--- NOTE | 2017-11-03 11:29 | HOSPPROG ---
Hospitalist Progress Note Assessment/Plan: Post-op hypotension - suspect intra-operative precedex and opiates playing a role. Dopamine requirement down to 3 mcg from 8 mcg yest. Poor oral intake. -cont IVF's -wean dopamine as able -add on cortisol to am labs (note opiates can suppress). If low, will check ACTH stim in am. -advance diet as able N/V - ?opioid side effect -supportive care with anti-emetics, scopolamine patch Spondylolysthesis s/p AP lumbar fusion, POD #2 - followed by neurosurg and gen surg -pain control with scheduled tylenol, lidoderm, morphine convalescent sitter -consider low dose ketamine, but would like to see off dopamine Post-op ileus - bowel tones noted, seems a bit better today. -regular diet as tolerated per surg COPD - stable Full code Dispo - cont ICU, inpt. Discussed with Dr. Banuelos, pharmacy and care team Subjective: Pt is very quiet, minimally interactive, but awakens and answers questions appropriately. Had a few sips of mac reji and bites of apple sauce , no vomiting. Nausea a little improved. No fevers. Objective: Vital Signs Temp Pulse Resp BP Pulse Ox 36.2 C 63 13 94/47 L 96 11/03/17 08:00 11/03/17 10:51 11/03/17 10:51 11/03/17 10:51 11/03/17 10:51 Laboratory Results 11/02/17 04:10 11/03/17 04:20 11/02/17 11/03/17 11/04/17 05:59 05:59 05:59 Intake Total 5611.7 3602 Output Total 3300 1640 40 Balance 2311.7 1962 -40 - Physical Exam Constitutional: no apparent distress Eyes: PERRL Ears, Nose, Mouth, Throat: moist mucous membranes Cardiovascular: regular rate and rhythym Respiratory: no respiratory distress Gastrointestinal: normoactive bowel sounds, soft, non-tender abdomen Skin: warm Musculoskeletal: full muscle strength Neurologic: AAOx3 Psychiatric: interacting appropriately ICD10 Worksheet Patient Problems: Problems Problem Status Onset Pseudoarthrosis of lumbar spine Acute
--- NOTE | 2017-11-03 12:35 | PDINTPN ---
Solid Waste Analyst Progress Note Assessment/Plan: Assessment: S/P L5-S1 ALIF, L1-2 TLIF with lumbar hardware exploration/removal and T12-S2 posterior fusion: Pain control a bit better today, sitting in chair S/P anterior exposure: Still with abdominal pain and reduced BS. Hypotension: Weaned DA down to 3. Good urine output. CVP 8. Nausea: Likely related to anesthesia, narcotics. Improved, taking a little bit of PO. Anemia: Mild, improved a bit Plan: Activity and diet as tolerated. Wean DA. Follow H/H 11/03/17 12:42 Subjective: C/O back>abdominal pain, improved a bit. Mild nausea Objective: Vital Signs Temp Pulse Resp BP Pulse Ox 36.2 C 63 13 94/47 L 96 11/03/17 08:00 11/03/17 10:51 11/03/17 10:51 11/03/17 10:51 11/03/17 10:51 Laboratory Results 11/02/17 04:10 11/03/17 04:20 11/02/17 11/03/17 11/04/17 05:59 05:59 05:59 Intake Total 5611.7 3602 Output Total 3300 1640 40 Balance 2311.7 1962 -40 Physical Exam - Physical Exam General Appearance: alert, no apparent distress EENT: normal ENT inspection Neck: normal inspection Respiratory: lungs clear, normal breath sounds Cardiac/Chest: regular rate, rhythm, No edema Abdomen: non-tender, soft, No normal bowel sounds (diminished) Skin: normal color, warm/dry Extremities: normal inspection Neuro/Psych: alert, normal mood/affect, oriented x 3 ICD10 Worksheet Patient Problems: Problems Problem Status Onset Pseudoarthrosis of lumbar spine Acute
[2017-11-03] MEDS: PROGESTERONE,MICR 100 MG CAP PO SCH (21:28)
[2017-11-03] MEDS: PATCH REMOVAL 1 EA PATCH TD SCH (21:28)
[2017-11-04] MEDS: ACETAMINOPHEN 500 MG TAB PO SCH ×3 (04:59→21:45)
[2017-11-04] MEDS: POTASSIUM Cl (KCl) 20 MEQ in 1/2 NS 1,000 ML IV SCH ×2 (05:00→18:45)
[2017-11-04] MEDS: METHOCARBAMOL 750 MG TAB PO PRN ×3 (05:16→21:45)
[2017-11-04] MEDS: ONDANSETRON DISINTEGRATING 4 MG TAB PO PRN (05:56)
[2017-11-04] MEDS: GABAPENTIN 300 MG CAP PO SCH ×3 (07:49→21:46)
[2017-11-04] MEDS: TAPENTADOL HCL 50 MG TAB PO PRN ×2 (07:49→14:28)
[2017-11-04] MEDS: SENNOSIDES/DOCUSATE SODIUM TAB PO SCH ×2 (07:49→21:44)
[2017-11-04] MEDS: LEVOTHYROXINE 75 MCG TAB PO SCH (07:50)
[2017-11-04] MEDS: ENOXAPARIN 40 MG/0.4 ML SYR SC SCH (07:50)
[2017-11-04] MEDS: LIDOCAINE 4%/MENTHOL 1% PATCH TD SCH (07:50)
--- NOTE | 2017-11-04 08:25 | NEUSURGPN ---
Date of Surgery: 11/01/17 Post Op Day: 3 Assessment/Plan: 72 yo F s/p L5-S1 ALIF, L1-2 TLIF with lumbar hardware exploration/removal and T12-S2 PSF Nauseated improved today. 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 Neuro stable PLAN: -Continue ICU given need for pressors, currently trying to wean -Scopalomine patch for nausea -Removed RICKIE, tip intact -Change dressing -PT/OT -Work on pain management, will try to wean IV pain medications as tolerated -DC strong -Wear brace when out of bed -Patient was seen by Dr Castro as well Subjective: Patient comfortable, pain controlled with current regimen Objective: AAOx3 NAD MAEx4 Motor 5/5 BLE Dressing CDI, removed and visualized incision-CDI +LT Neuro Check Frequency: per routine Urinary Catheter in Place: Yes Urinary Catheter Indication: Other (Use Comment) (Post lumbar surgery, hypotensive, will remove today) Catheter Insertion Date: 11/01/17 - Physician Discussed Patient with Dr.: Castro Patient Seen by : Gloria Neurosurgery Physical Exam - Vitals, I&O, Labs I and O 11/03/17 11/04/17 11/05/17 05:59 05:59 05:59 Intake Total 3602 2814.9 Output Total 1640 3010 60 Balance 1962 -195.1 -60 Intake: Oral (ml) 150 240 IV Infused (ml) 3452 2574.9 Albumin 5% 500 ml @ As 500 Directed IV ONCE ONE Rx#: [id number] DOPamine/DEXTROSE 250 ml 308 135.9 @ Titrate IV CONT DON Rx# :[id number] Dexmedetomidine HCl 400 30 mcg In Ns 100 ml @ Titrate IV CONT DON Rx#: [id number] NS W/ 20 KCl/L 1,000 ml @ 1600 100 mls/hr IV CONT DON Rx#:[id number] POTASSIUM Cl (KCl) 20 meq 1010 2439 In 1/2 Ns 1,000 ml @ 100 mls/hr IV CONT DON Rx#: [id number] Protocol Calcium 1 dose ( 4 See Protocol) IV AD PRN Rx#:[id number] Output: Urine (ml) 1250 2900 Catheter 1250 2900 RICKIE Drain Output (ml) 390 110 60 #1 Posterior Back Aakash 390 110 60 Rodgers Other: Number of Stools Catheter 0 0 Vital Signs Temp Pulse Resp BP Pulse Ox 36.6 C 56 L 16 104/55 L 93 11/04/17 07:00 11/04/17 07:00 11/04/17 07:00 11/04/17 07:00 11/04/17 07:00 Laboratory Results 11/02/17 04:10 11/04/17 05:15 ICD10 Worksheet Patient Problems: Problems Problem Status Onset Pseudoarthrosis of lumbar spine Acute
[2017-11-04] MEDS ORDERED: BISACODYL 10 MG SUPP PR ONE (08:30)
--- NOTE | 2017-11-04 09:06 | SOAPPROG ---
SOAP Progress Note Assessment/Plan: Assessment: abd soft, ileus with slight distention, active bs, starting po Plan:dulcolax 11/04/17 09:05 Objective: Vital Signs Temp Pulse Resp BP Pulse Ox 36.5 C 59 L 12 107/47 L 92 11/04/17 08:00 11/04/17 08:00 11/04/17 08:00 11/04/17 08:00 11/04/17 08:00 Laboratory Results 11/02/17 04:10 11/04/17 05:15 11/03/17 11/04/17 11/05/17 05:59 05:59 05:59 Intake Total 3602 2814.9 240 Output Total 1640 3010 310 Balance 1962 -195.1 -70 ICD10 Worksheet Patient Problems: Problems Problem Status Onset Pseudoarthrosis of lumbar spine Acute
[2017-11-04] MEDS: FAMOTIDINE 20 MG/NACL 50 ML IV SCH (09:10)
[2017-11-04] MEDS: Teriparatide [Forteo] SQ SCH (09:11)
--- NOTE | 2017-11-04 11:35 | HOSPPROG ---
Hospitalist Progress Note Assessment/Plan: Post-op hypotension - suspect intra-operative precedex and opiates contributory. AM cortisol nl. Now off pressors and SBP maintaining >100. -cont IVF's, advance diet N/V - much improved -supportive care with anti-emetics, scopolamine patch Spondylolysthesis s/p AP lumbar fusion, POD #3 - followed by neurosurg and gen surg -pain control with scheduled tylenol, lidoderm, morphine wellness spa manager -could transition off wellness spa manager soon, receiving po nucynta per neurosurg Post-op ileus - bowel tones noted, seems better today. -regular diet as tolerated per surg COPD - stable Full code Dispo - cont inpt, can likely transfer to floor later today if BP remains stable and neurosurgery team agrees. Subjective: Pt doing much better. Pain and nausea much improved. No vomiting. Taking po better. No fevers. Up in chair. Objective: Vital Signs Temp Pulse Resp BP Pulse Ox 36.5 C 59 L 12 99/57 L 93 11/04/17 08:00 11/04/17 10:00 11/04/17 10:00 11/04/17 10:00 11/04/17 10:00 Laboratory Results 11/02/17 04:10 11/04/17 05:15 11/03/17 11/04/17 11/05/17 05:59 05:59 05:59 Intake Total 3602 2814.9 620 Output Total 1640 3010 310 Balance 1962 -195.1 310 - Physical Exam Constitutional: no apparent distress Eyes: PERRL Ears, Nose, Mouth, Throat: moist mucous membranes Cardiovascular: regular rate and rhythym Respiratory: no respiratory distress, clear to auscultation Gastrointestinal: normoactive bowel sounds, soft, non-tender abdomen Skin: warm Musculoskeletal: full muscle strength Neurologic: AAOx3 Psychiatric: interacting appropriately ICD10 Worksheet Patient Problems: Problems Problem Status Onset Pseudoarthrosis of lumbar spine Acute
[2017-11-04] MEDS ORDERED: PATCH REMOVAL 1 EA PATCH TD PRN (14:47)
--- NOTE | 2017-11-04 17:26 | ASMTCMCOM ---
CM Note CM Note Notes: According to RN and family, patient doing so much better today. Nausea resolved, eating, pain better managed. Talked about the possibly In-pt rehab. Order written. Date Signed: 11/04/2017 05:26 PM Electronically Signed By:Inessa Reza LCSW
[2017-11-04] MEDS: FAMOTIDINE 20 MG TAB PO SCH (21:37)
[2017-11-04] MEDS: PROGESTERONE,MICR 100 MG CAP PO SCH (21:38)
[2017-11-04] MEDS: PATCH REMOVAL 1 EA PATCH TD SCH (21:45)
[2017-11-05] MEDS: ACETAMINOPHEN 500 MG TAB PO SCH ×3 (05:38→20:20)
[2017-11-05] MEDS: TAPENTADOL HCL 50 MG TAB PO PRN ×2 (05:38→16:06)
[2017-11-05] MEDS: METHOCARBAMOL 750 MG TAB PO PRN ×2 (05:39→16:06)
--- NOTE | 2017-11-05 08:00 | NEUSURGPN ---
Date of Surgery: 11/01/17 Post Op Day: 4 Assessment/Plan: 72 yo F s/p L5-S1 ALIF, L1-2 TLIF with lumbar hardware exploration/removal and T12-S2 PSF Nauseated improved today. Morphine DIE ATTACHING MACHINE TENDER working well. Neuro stable PLAN: -Patient off pressors since yesterday am, patient states her normal sbp runs around 100 -Ok to transfer to floor if ok with Medicine -Scopalomine patch for nausea -PT/OT -Work on pain management, will try to wean IV pain medications as tolerated. Patient required two doses IV last night with ambulation -Wear brace when out of bed -Patient was discussed with Dr Castro -Please call neurosurgery with any questions/concerns Subjective: Patient feeling better than yesterday, abdomen sore Objective: PERRLA VSS 5/5 BLE Sensation intact to light touch BLE Dressings x2 CDI Neuro Check Frequency: per routine Urinary Catheter in Place: No Catheter Insertion Date: 11/01/17 - Physician Discussed Patient with Dr.: Castro Neurosurgery Physical Exam - Vitals, I&O, Labs I and O 11/04/17 11/05/17 11/06/17 05:59 05:59 05:59 Intake Total 2814.9 3650 Output Total 3010 310 Balance -195.1 3340 Intake: Oral (ml) 240 1850 IV Infused (ml) 2574.9 1800 DOPamine/DEXTROSE 250 ml 135.9 20 @ Titrate IV CONT DON Rx# :[id number] POTASSIUM Cl (KCl) 20 meq 2439 1780 In 1/2 Ns 1,000 ml @ 100 mls/hr IV CONT DON Rx#: [id number] Output: Urine (ml) 2900 250 Catheter 2900 250 RICKIE Drain Output (ml) 110 60 #1 Posterior Back Aakash 110 60 Rodgers Other: Number of Voids Toilet 7 Number of Stools Catheter 0 Toilet 2 Vital Signs Temp Pulse Resp BP Pulse Ox 36.9 C 56 L 12 105/56 L 98 11/04/17 20:00 11/05/17 04:00 11/05/17 02:00 11/05/17 04:00 11/05/17 04:00 Laboratory Results 11/02/17 04:10 11/04/17 05:15 ICD10 Worksheet Patient Problems: Problems Problem Status Onset Pseudoarthrosis of lumbar spine Acute
[2017-11-05 08:38] VITALS: RESP 16
--- NOTE | 2017-11-05 09:16 | PDINTPN ---
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 Has little in the way of oral narcotics ordered. S/P anterior exposure: Still with abdominal pain and reduced BS. Hypotension: Off dopamine since yesterday morning. Blood pressure is acceptable. Nausea: Resolving, eating. Anemia: Last hematocrit 32, recheck in a.m.. Plan: Can transfer to a medical-surgical bed today on . Possibly to rehab later? Will add immediate release morphine. With this hopefully she can wean off the CLIENT SERVICE SUPERVISOR. Increase activity as tolerated. Stop intravenous fluids. Discussed with patient, her sister and her . Subjective: Doing better overall. Still with back pain. Using CLIENT SERVICE SUPERVISOR intermittently, twice last night. Complains of getting up to often to urinate. Objective: Vital Signs Temp Pulse Resp BP Pulse Ox 37.0 C 63 16 100/53 L 93 11/05/17 08:00 11/05/17 08:00 11/05/17 08:00 11/05/17 08:00 11/05/17 08:00 Laboratory Results 11/02/17 04:10 11/04/17 05:15 11/04/17 11/05/17 11/06/17 05:59 05:59 05:59 Intake Total 2814.9 3650 Output Total 3010 310 Balance -195.1 3340 Physical Exam - Physical Exam General Appearance: alert, no apparent distress EENT: PERRL/EOMI Neck: normal inspection (No JVD) Respiratory: lungs clear Cardiac/Chest: regular rate, rhythm Abdomen: normal bowel sounds, non-tender, soft Skin: normal color, warm/dry Extremities: No pedal edema Neuro/Psych: no motor/sensory deficits, No cognition abnormalities ICD10 Worksheet Patient Problems: Problems Problem Status Onset Pseudoarthrosis of lumbar spine Acute
[2017-11-05] MEDS: GABAPENTIN 300 MG CAP PO SCH ×3 (09:52→20:21)
[2017-11-05] MEDS: FAMOTIDINE 20 MG TAB PO SCH ×2 (09:53→20:20)
[2017-11-05] MEDS: LEVOTHYROXINE 75 MCG TAB PO SCH (09:53)
[2017-11-05] MEDS: LIDOCAINE 4%/MENTHOL 1% PATCH TD SCH (09:53)
[2017-11-05] MEDS: SENNOSIDES/DOCUSATE SODIUM TAB PO SCH ×2 (09:53→20:19)
[2017-11-05] MEDS: ENOXAPARIN 40 MG/0.4 ML SYR SC SCH (09:53)
[2017-11-05] MEDS: Teriparatide [Forteo] SQ SCH (09:54)
--- NOTE | 2017-11-05 11:05 | HOSPPROG ---
Hospitalist Progress Note Assessment/Plan: Spondylolysthesis s/p hardware removal and AP lumbar fusion, POD #4 - followed by neurosurg and gen surg -pain control with scheduled tylenol, lidoderm, morphine salesperson pets and pet supplies -wean ARMED SECURITY PROFESSIONAL, prn oral morphine and nucynta ordered (would recommend one or the other, not both) Post-op hypotension - Resolved. Suspect intra-operative precedex and opiates were contributory. AM cortisol nl. Now off pressors x24 hrs and SBP maintaining >100. N/V - much improved -supportive care with anti-emetics, scopolamine patch Post-op ileus - resolved, +BM -diet as tolerated COPD - stable Full code Dispo - cont inpt, transfer to med surg today. ADD likely 1-2 days- inpt rehab vs home with home care. Neurosurg is primary. Subjective: Pt feels better. +BM. Less nausea, no vomiting. Taking more po today. No fevers. No platt, CP or SOB. Objective: Vital Signs Temp Pulse Resp BP Pulse Ox 37.0 C 63 16 100/53 L 93 11/05/17 08:00 11/05/17 08:00 11/05/17 08:00 11/05/17 08:00 11/05/17 08:00 Laboratory Results 11/02/17 04:10 11/04/17 05:15 11/04/17 11/05/17 11/06/17 05:59 05:59 05:59 Intake Total 2814.9 3650 Output Total 3010 310 Balance -195.1 3340 - Physical Exam Constitutional: no apparent distress Eyes: PERRL Ears, Nose, Mouth, Throat: moist mucous membranes Cardiovascular: regular rate and rhythym Respiratory: no respiratory distress, clear to auscultation Gastrointestinal: normoactive bowel sounds, soft, non-tender abdomen Skin: warm Musculoskeletal: full muscle strength Neurologic: AAOx3 Psychiatric: interacting appropriately ICD10 Worksheet Patient Problems: Problems Problem Status Onset Pseudoarthrosis of lumbar spine Acute
[2017-11-05] MEDS: PROGESTERONE,MICR 100 MG CAP PO SCH (20:20)
[2017-11-05] MEDS: PATCH REMOVAL 1 EA PATCH TD SCH (22:00)
[2017-11-06] MEDS: ACETAMINOPHEN 500 MG TAB PO SCH ×2 (06:44→16:11)
[2017-11-06] MEDS: TAPENTADOL HCL 50 MG TAB PO PRN ×2 (06:46→16:11)
[2017-11-06] MEDS: METHOCARBAMOL 750 MG TAB PO PRN ×2 (06:46→16:11)
[2017-11-06 07:55] VITALS: PULSE 56; O2SAT 95
[2017-11-06 07:58] VITALS: TEMP 98
[2017-11-06] MEDS ORDERED: MAGNESIUM CITRATE 300 ML BOTTLE PO ONE ×3 (08:37→15:30)
--- NOTE | 2017-11-06 08:41 | NEUSURGPN ---
Date of Surgery: 11/01/17 Post Op Day: 5 Assessment/Plan: 72 yo F s/p L5-S1 ALIF, L1-2 TLIF with lumbar hardware exploration/removal and T12-S2 PSF PLAN: - neuro stable - pain controlled off of SPECIAL FORCES ENGINEER SERGEANT - wear brace when out of bed - constipation, on bowel regimen. Mg Citrate ordered - PT/OT - plan for rehab upon discharge, likely tomorrow if has BM and cleared by medicine -Patient was discussed with Dr Castro -Please call neurosurgery with any questions/concerns Subjective: Doing well this morning. Having pain at the right hip to inner groin. Ambulating with the walker. Objective: Awake. Alert. PERRL. EOMI Muscle strength full at 5/5 Sensation intact Incision with dressing c/d/i Catheter Insertion Date: 11/01/17 - Physician Discussed Patient with : Gloria Neurosurgery Physical Exam - Vitals, I&O, Labs I and O 11/05/17 11/06/17 11/07/17 05:59 05:59 05:59 Intake Total 3650 650 Output Total 310 Balance 3340 650 Intake: Oral (ml) 1850 650 IV Infused (ml) 1800 DOPamine/DEXTROSE 250 ml 20 @ Titrate IV CONT DON Rx# :[id number] POTASSIUM Cl (KCl) 20 meq 1780 In 1/2 Ns 1,000 ml @ 100 mls/hr IV CONT DON Rx#: [id number] Output: Urine (ml) 250 Catheter 250 RICKIE Drain Output (ml) 60 #1 Posterior Back Aakash 60 Rodgers Other: Intake Quantity Yes Sufficient Number of Voids Toilet 7 1 Number of Stools Toilet 2 Vital Signs Temp Pulse Resp BP Pulse Ox 36.6 C 56 L 16 99/52 L 95 11/06/17 07:54 11/06/17 07:54 11/06/17 07:54 11/06/17 07:54 11/06/17 07:54 Laboratory Results 11/02/17 04:10 11/04/17 05:15 ICD10 Worksheet Patient Problems: Problems Problem Status Onset Pseudoarthrosis of lumbar spine Acute
[2017-11-06] MEDS: LIDOCAINE 4%/MENTHOL 1% PATCH TD SCH (08:43)
[2017-11-06] MEDS: ENOXAPARIN 40 MG/0.4 ML SYR SC SCH (08:43)
[2017-11-06] MEDS: LEVOTHYROXINE 75 MCG TAB PO SCH (08:43)
[2017-11-06] MEDS: GABAPENTIN 300 MG CAP PO SCH ×2 (08:43→16:12)
[2017-11-06] MEDS: FAMOTIDINE 20 MG TAB PO SCH (08:43)
[2017-11-06] MEDS: Teriparatide [Forteo] SQ SCH (09:04)
[2017-11-06] MEDS: SENNOSIDES/DOCUSATE SODIUM TAB PO SCH (09:04)
--- NOTE | 2017-11-06 13:29 | HOSPPROG ---
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 Suspect intra-operative precedex and opiates were contributory. AM cortisol nl. Now off pressors x24 hrs and SBP maintaining >100. N/V - much improved -supportive care with anti-emetics, scopolamine patch Post-op ileus/constipation * trying for bm today COPD - stable OK per IM to dc today or tomorrow Full code Subjective: constipated. no new complaints Objective: Vital Signs Temp Pulse Resp BP Pulse Ox 36.6 C 56 L 16 99/52 L 95 11/06/17 07:54 11/06/17 07:54 11/06/17 07:54 11/06/17 07:54 11/06/17 07:54 Laboratory Results 11/02/17 04:10 11/04/17 05:15 11/05/17 11/06/17 11/07/17 05:59 05:59 05:59 Intake Total 3650 650 Output Total 310 Balance 3340 650 - Physical Exam Constitutional: no apparent distress, appears nourished, not in pain Eyes: anicteric sclera, EOMI Ears, Nose, Mouth, Throat: moist mucous membranes, hearing normal Cardiovascular: regular rate and rhythym Respiratory: no respiratory distress Gastrointestinal: normoactive bowel sounds, distension Neurologic: AAOx3 Psychiatric: interacting appropriately, not anxious, not encephalopathic, thought process linear ICD10 Worksheet Patient Problems: Problems Problem Status Onset Pseudoarthrosis of lumbar spine Acute
[2017-11-06 15:08] VITALS: BP 98/52
--- NOTE | 2017-11-06 15:26 | PDIAF ---
- Diagnosis Diagnosis: Lumbar stenosis and pseudoarthrosis Code Status: Full Code - Medication Management Discharge Medications: Medications to Continue on Transfer Gabapentin [Neurontin 300 MG (*)] 300 mg PO TID 10/21/12 [Last Taken 10/31/17] Herbals/Supplements -Info Only 1 each PO AD 10/21/12 [Last Taken 10/18/17] Progesterone,Micronized [Prometrium] 100 mg PO HS 05/14/14 [Last Taken 10/31/17] Fluticasone Nasal [Flonase Nasal [place]] 1 sprays NASAL DAILY PRN 06/14/16 [Last Taken 10/11/17] Byest + Testosterone Cream Cmp 1 shelby TP HS 10/04/17 [Last Taken 10/31/17] Byest Cream 80-20 Compound 1 shelby TP DAILY 10/04/17 [Last Taken 10/31/17] Compounded Suppository 1 each RC HS 10/04/17 [Last Taken 10/31/17] Levalbuterol Inhaler [Xopenex Hfa Inhaler (*)] 1 puffs IH DAILY PRN 10/04/17 [ Last Taken 10/25/17] Levothyroxine [Synthroid 75 mcg (*)] 75 mcg PO DAILY 10/04/17 [Last Taken 01:30] Loratadine [Claritin 10 mg] 10 mg PO DAILY PRN 10/04/17 [Last Taken 10/11/17] Loteprednol Etabonate [Alrex] 1 drop EACHEYE BID PRN 10/04/17 [Last Taken ] Conway-3 Fatty Acids [Fish Oil 1000 mg (*)] 1,000 mg PO DAILY 10/04/17 [Last Taken 10/18/17] Teriparatide [Forteo] 2.4 ml SQ DAILY 10/07/17 [Last Taken 10/31/17] Diazepam [Valium 5 MG (*)] 5 mg PO DAILY 11/01/17 [Last Taken 11/01/17 05:00] Methocarbamol [Robaxin 750 mg (*)] 750 mg PO QID PRN #60 tab 11/06/17 [Last Taken Unknown] Sennosides/Docusate Sodium [Senokot-S] 1 - 2 tab PO BID tab 11/06/17 [Last Taken Unknown] Tapentadol HCl [Nucynta 50 MG (*)] 50 mg PO Q4HRS PRN tab 11/06/17 [Last Taken Unknown] Discharge Medications: Refer to the Discharge Home Medication list for PRN reason. - Orders Services needed: Physical Therapy, Occupational Therapy Diet Recommendation: no restrictions on diet Diet Texture: Regular Texture Diet Sutures/Leeroy Site: Patient to follow up in 2 weeks for suture removal/wound check. Activity/Weight Bearing Restrictions: Wear brace when out of bed. Refrain from lifting more than 10 pounds and bending/twisting - Follow Up Care Current Providers and Referrals: Kiet Gregory MD [Primary Care Provider] - Tam Castro MD [Medical Doctor] -
--- NOTE | 2017-11-06 16:26 | ASMTCMCOM ---
CM Note CM Note Notes: PT had bm and is medically stable to d/c to [facility] inpatient rehab. Pt agreeable to payment for tara Hernández who will pickup at 16:00. Orders to be obtained via [employer]. RONALD Martinez to call report. Date Signed: 11/06/2017 04:25 PM Electronically Signed By:ROSE Ryan
--- NOTE | 2017-11-06 16:26 | ASDISCHSUM ---
Discharge Information Plan Status:Inpatient Rehab Medically Cleared to Leave: Discharge Date:11/06/2017 04:20 PM CM D/C Disposition:[facility] IP ADT D/C Disposition:[facility] IP Projected Discharge Date:11/06/2017 11:00 AM Transportation at D/C:Wheelchair Van Discharge Delay Reason: Follow-Up Date:11/06/2017 11:00 AM Discharge Slot: Final Diagnosis: Placement Information Referral Type:Rehabilitation Hospital Referral ID:[id number] Provider Name:[facility] Address 1:[address] Phone Number: Address 2: Fax Number: [facility]:[place] Selection Factors: State:[place] Patient Contact Information Contact Name:BLANCO Relationship: Address:[address] [facility] City:[place] Alternate Phone: State/Zip Code:[place] [address] Email: Financial Information Financial Class:Medicare Primary Plan Desc:MEDICARE INPATIENT Primary Plan Number:[id number] Secondary Plan Desc:AARP/MDR SUPPLEMENT Secondary Plan Number:[id number] Assessment Information [facility] Initial CM Assessment Living Arrangements What is your living Answers: With Spouse arrangement? Who do you live with? Type Of Residence What kind of residence do Answers: House you live in? Discharge Plan Comments Coordination Status Comments Notes: Patient is a 72yo female who was admitted for spinal surgery. OT/PT have been ordered. Patient had surgery today. D/C needs TBD. CM will follow. Date Signed: 11/01/2017 04:08 PM Electronically Signed By:Melanie Zuniga LCSW [facility] CM Progress Note CM Note CM Note Notes: According to RN and family, patient doing so much better today. Nausea resolved, eating, pain better managed. Talked about the possibly In-pt rehab. Order written. Date Signed: 11/04/2017 05:26 PM Electronically Signed By:Inessa Reza LCSW [facility] CM Progress Note CM Note CM Note Notes: PT had bm and is medically stable to d/c to [facility] inpatient rehab. Pt agreeable to payment for vineet Gomez who will pickup at 16:00. Orders to be obtained via [employer]. RONALD Martinez to call report. Date Signed: 11/06/2017 04:25 PM Electronically Signed By:ROSE Ryan Intervention Information
== END 2017-11-06 16:20 | DRG 459 ==
LOC: F3N 05:31 → F2N 10:28 → F3N 11-05 10:44
PROVIDERS: ADMIT Neurological Surgery; ATTEND Neurological Surgery
DX: M43.17 Spondylolisthesis, lumbosacral region (principal); M47.27 Other spondylosis with radiculopathy, lumbosacral region; M41.26 Other idiopathic scoliosis, lumbar region; M51.17 Intervertebral disc disorders with radiculopathy, lumbosacral region; M48.07 Spinal stenosis, lumbosacral region; R57.1 Hypovolemic shock; D62 Acute posthemorrhagic anemia; K56.7 Ileus, unspecified; R11.2 Nausea with vomiting, unspecified; T40.605A Adverse effect of unspecified narcotics, initial encounter; J44.9 Chronic obstructive pulmonary disease, unspecified; Z98.1 Arthrodesis status; K90.0 Celiac disease; E06.3 Autoimmune thyroiditis; Z87.891 Personal history of nicotine dependence; Z87.440 Personal history of urinary (tract) infections
CPT/HCPCS: 97116-GP; 97161-GP; 97166-GO; 97530-GP; 97535-GO; C1713; C1751; C1762; G8978-GP-CK; G8979-GP-CI; G8987-GO-CK; G8988-GO-CI; J0171; J0610; J0690; J1170; J1200; J1265; J1650; J2250; J2270; J2274; J2370; J2405; J2550; J2704; J2780; J2800; J3010; J3360; J3480; J7060; P9016; P9041

== ENCOUNTER 2017-11-06 15:43 | Inpatient (IN) | payer OTHER, MEDICARE ==
[2017-11-06] MEDS ORDERED: MAG HYDROX/AL HYDROX/SIMETH 30 ML UDCUP PO PRN (17:27)
[2017-11-06] MEDS ORDERED: ACETAMINOPHEN 325 MG TAB PO PRN (17:27)
[2017-11-06] MEDS ORDERED: FLUTICASONE NASAL 120 SPRAYS/16 GM MDI NS PRN (17:40)
[2017-11-06] MEDS ORDERED: LOTEPREDNOL ETABONATE EACHEYE PRN (17:40)
--- NOTE | 2017-11-06 17:46 | PDOREHIP ---
Admission [facility] - Admission - 3 Day Assessment Period Admission Date/Day 1: 11/06/17 Day 2: 11/07/17 Day 3: 11/08/17 - Skin Conditions # Stage 1 Pressure Ulcers-Admission: 0 # Stage 2 Pressure Ulcers-Admission: 0 # Stage 3 Pressure Ulcers-Admission: 0 # Stage 4 Pressure Ulcers-Admission: 0 # Unstageable Pressure Ulcers (Non-remove Dress)-Admission: 0 # Unstageable Pressure Ulcers (Slough/Eschar)-Admission: 0 # Unstageable Pressure Ulcers (Deep Tissue Injury)-Admission: 0
--- NOTE | 2017-11-06 19:10 | GHP ---
[f rep st] HISTORY AND PHYSICAL DATE OF ADMISSION: 11/06/2017 TIME OF EVALUATION: 5:00 p.m. REFERRING FACILITY: [facility]. REFERRING PHYSICIAN: Dr. Castro IMPAIRMENT GROUP: [id number]. POST ADMISSION PHYSICIAN EVALUATION AND REHABILITATION TREATMENT PLAN DATE OF IMPAIRMENT: 10/16/2017. DATE OF SURGERY: 11/01/2017. CONSULT PHYSICIANS: Dr. Banuelos, Dr. Sharp, gastroenterology. REHABILITATION DIAGNOSES: Lumbar spinal stenosis; status post anterior L5-S1 diskectomy and fusion, status post posterior arthrodesis [id number] . ETIOLOGIC DIAGNOSES: Lumbar spinal stenosis; nontraumatic spinal cord injury. HISTORY OF PRESENT ILLNESS: A 72-year-old female who was admitted to [facility] on 11/01/2017 for worsening low back and bilateral lower extremity pain with neurogenic claudication that failed conservative treatment. She underwent L5-S1 diskectomy and anterior interbody fusion with PEEK cage as well as posterior arthrodesis [id number]___[id number] with exploration of prior lumbar hardware L2-5 and subsequent removal of segmental hardware, posterolateral fusion and bilateral pedicle screw placement, T12 bilaterally along with bilateral S2 alar iliac screws and posterolateral fusion [id number]__[id number]____ ____ with decompression laminectomies bilaterally L1-2 with facetectomies, left- sided L1-2 transforaminal lumbar interbody fusion with PEEK cage. Her postoperative course was complicated by hypotension, which required IV albumin and transfusion, PICC line insertion for pressors, postop ileus and significant postop pain requiring IV Dilaudid. Eventually, patient was hemodynamically stabilized, the PICC line was removed. She was given a vigorous but judicious bowel program and an hour prior to transfer to the inpatient rehab unit, she had a large bowel movement. She currently reports some abdominal discomfort and some diarrhea along with some nausea and one previous vomiting episode when she was transferred to the rehab floor. She reports significant low back pain, but denies low back spasms. She does not report lower extremity radicular-type symptoms. LABORATORY STUDIES: From 11/02/2017, CBC 10.28, hemoglobin 11.4, hematocrit 39.4. Sodium 145, potassium 4.2, BUN 7, creatinine 0.6, glucose 133. She is noted not to be on anticoagulants. PRECAUTIONS: She is a fall risk. ACTIVE COMORBIDITIES: No history of diabetes. PAST MEDICAL HISTORY: Raynaud disease. Celiac disease. Mild COPD/asthma. Peripheral neuropathy. Graves disease and Ghada's. Tinnitus. Spinal fusion in 2013. Cataracts bilaterally. Possible history of migraine headaches. PAST SURGICAL HISTORY: Previous L2-5 spinal fusion. ADMISSION MEDICATIONS: Gabapentin 300 t.i.d. Herbal supplement. Micronized progesterone 100 mg p.o. h.s. Flonase nasal spray. Biest plus testosterone cream compound. Biest cream 80-20 compounded suppository. Forteo 2.4 mL subcu daily. Valium 5 mg. Robaxin 750 p.o. q.i.d. p.r.n. muscle spasms. Senokot-S 1 -2 tablets p.o. twice daily. Nucynta 50 mg p.o. q.4 hours. PRE-HOSPITAL MEDICATIONS: Include all of the above, plus Claritin. Warrens-3 fatty acids, last taken 10/18. ALLERGIES: NKDA. PSYCHOSOCIAL HISTORY: . employed. 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 FAMILY HISTORY: Positive for Raynaud's. REVIEW OF SYSTEMS: HEENT: Reports tinnitus. Denies ear or jaw pain. GI: Reports mild abdominal discomfort and diarrhea secondary to copious laxatives prior to transfer. : Denies dysuria, hematuria. Positive for urinary frequency at night. NEUROLOGICAL: Reports mild neuropathy, but she reports she can feel her feet. SKIN: Reports a Raynaud changes in both hands and feet , more severe in the hands. MUSCULOSKELETAL: Denies shoulder, elbow, wrist pain. Denies hip, knee, ankle pain. PULMONARY: Denies shortness of breath. CARDIAC. Denies angina-like symptoms. PHYSICAL EXAM: VITAL SIGNS: Pending at this time. CONSTITUTIONAL: WDWN, pleasant female, NAD. Cooperative. HEENT: EOMI, PERRLA, tracks across all visual mcdaniel. Oral mucosa moist. Dentition is good. LUNGS: Clear to auscultation. NECK: Supple. No cervical lymphadenopathy. No axillary lymphadenopathy. CARDIAC: Mild systolic ejection murmur. Regular rate and rhythm. No calf tenderness. No pretibial edema. LUNGS: Clear to auscultation. ABDOMEN: Slightly protuberant, distended. Hyperactive bowel sounds all 4 quadrants. EXTREMITIES: Both hands are cool to touch with Raynaud 's changes. NEUROLOGICAL: Grossly normal upper extremity motor exam but there is some pain inhibition secondary to back pain at the incision site. Grossly normal lower extremity motor exam. MUSCULOSKELETAL: Functional range of motion right and left glenohumeral joints, elbows, wrists, hips, knees, and ankles. She can go from supine to sit without much difficulty. CURRENT LEVEL OF FUNCTION: Diet: Celiac diet, no wheat, no soy, no dairy. Grooming is SBA with verbal cuing at sink. Bathing sponge bath with minimal assist. Dressing SBA and VCs with use of photo offset printer and sock aid during sitting. Patient needs reminders not to bend during ADLs. Toileting SBA and A for leonora care. Continent of bowel and bladder. Bed mobility moderate independence with use of rails. Transfers: Contact guard assist. Gait: Walks 200 feet with FWW with reported decompensation secondary to fatigue. IMPRESSION: A 72-year-old female status post L5-S1 anterior decompression and fusion, status post T12-S2 posterior fusion with postop complications include ileus, hypotension, and significant pain. She is currently medically stable and is suitable for inpatient rehabilitation admission. Expected level of improvement for safe discharge includes moderate independent for all ADLs and functional tasks with the least amount of assistive devices. She will demonstrate ability to maintain spinal precautions throughout ADLs and functional activities. The patient will have bowel movements without issues. Discharge plan is to discharge home with supported services. She will require 90 minutes per day physical therapy, occupational therapy 5-7 days a week for an estimated time of 5-7 days. PLAN: 1. Status post L5-S1 diskectomy and fusion, status post T12-S2 fusion for lumbar spinal stenosis with neurogenic claudication. She currently denies lower extremity pain, radicular symptoms or symptoms consistent with neurogenic claudication. Physical and occupational therapy to address lower and upper extremity strength, respectively and to work in concert to address trunk strength to improve trunk stability and quality of gait. 2. Back pain-continue gabapentin 300 t.i.d. Methocarbamol 750 p.o. q.i.d. p.r.n. back spasms. Acetaminophen 650 q.4 hours. 3. History of postoperative hypotension-we will monitor blood pressure q.shift. Unlikely that she will need medications to address this, however, will encourage p.o. fluids. If blood pressure is low during upright activities , then will recommend compressive stockings when she is out of bed. 4. Hypothyroidism. Continue Synthroid 75 mcg p.o. daily. 5. Bladder program. Currently continent of urine. She does report nocturnal frequency. Physical therapy may try a trial of Kegel exercises to increase pelvic floor muscle strength, which may help with urinary incontinence. 6. Bowel program-she had her first bowel movement today postoperatively and is having some diarrhea, which is expected to clear in the next day or so and is probably due to the amount of laxative she received prior to transfer. Continue Senokot-S 1-2 tablets p.o. b.i.d. 7. Orthotics: TLSO to be worn out of bed. She can remove it while sleeping. Remove for showering. 8. Celiac disease. She requested diet with no dairy, no soy, no wheat. We will have nursing relay this to dietary. 9. Mild chronic obstructive pulmonary disease/asthma. Currently not taking any medications for this. Will recommend incentive spirometry 10 puffs per hour while awake. According to medical records, she has not used her levalbuterol inhaler since 10/25/2017. However, if she gets shortness of breath or chest tightness, then we may add this to her regimen. 10. Osteoporosis-continue Forteo 2.4 mL subcu daily. /[id number]/MODL MTDD
[2017-11-06] MEDS: TAPENTADOL HCL 50 MG TAB PO PRN (20:04)
[2017-11-06] MEDS: METHOCARBAMOL 750 MG TAB PO PRN (20:05)
[2017-11-06] MEDS: GABAPENTIN 300 MG CAP PO SCH (20:27)
[2017-11-06] MEDS: SENNOSIDES/DOCUSATE SODIUM TAB PO SCH (20:29)
[2017-11-06] MEDS: PROGESTERONE MICRONIZED 100 MG PO SCH (20:29)
[2017-11-06] MEDS: [UNRECOGNIZED DRUG - OTHER] TP SCH (20:32)
[2017-11-06] MEDS: TESTOSTERONE TP SCH (20:32)
[2017-11-07] MEDS: TAPENTADOL HCL 50 MG TAB PO PRN ×2 (07:36→13:23)
[2017-11-07] MEDS ORDERED: OMEGA-3 FATTY ACIDS 1,000 MG CAP PO SCH (09:00)
[2017-11-07] MEDS ORDERED: DIAZEPAM 5 MG TAB PO SCH (09:00)
[2017-11-07] MEDS: SENNOSIDES/DOCUSATE SODIUM TAB PO SCH ×2 (09:26→22:22)
[2017-11-07] MEDS: [UNRECOGNIZED DRUG - OTHER] TP SCH (09:28)
[2017-11-07] MEDS: COMPOUND TP SCH (09:28)
[2017-11-07] MEDS: GABAPENTIN 300 MG CAP PO SCH ×3 (09:28→22:21)
[2017-11-07] MEDS: LEVOTHYROXINE 75 MCG TAB PO SCH (09:28)
--- NOTE | 2017-11-07 09:46 | SOAPPROG ---
SOAP Progress Note Assessment/Plan: Assessment: IMPRESSION: A 72-year-old female status post L5-S1 anterior decompression and fusion, status post T12-S2 posterior fusion with postop complications include ileus, hypotension, and significant pain. She is currently medically stable and is suitable for inpatient rehabilitation admission. Expected level of improvement for safe discharge includes moderate independent for all ADLs and functional tasks with the least amount of assistive devices. She will demonstrate ability to maintain spinal precautions throughout ADLs and functional activities. The patient will have bowel movements without issues. Discharge plan is to discharge home with supported services. She will require 90 minutes per day physical therapy, occupational therapy 5-7 days a week for an estimated time of 5-7 days. PLAN: 1. Status post L5-S1 diskectomy and fusion, status post T12-S2 fusion for lumbar spinal stenosis with neurogenic claudication. She currently denies lower extremity pain, radicular symptoms or symptoms consistent with neurogenic claudication. Physical and occupational therapy to address lower and upper extremity strength, respectively and to work in concert to address trunk strength to improve trunk stability and quality of gait. 2. Back pain-continue gabapentin 300 t.i.d. Methocarbamol 750 p.o. q.i.d. p.r.n. back spasms. Acetaminophen 650 q.4 hours. 3. History of postoperative hypotension-we will monitor blood pressure q.shift. Unlikely that she will need medications to address this, however, will encourage p.o. fluids. If blood pressure is low during upright activities , then will recommend compressive stockings when she is out of bed. Blood pressure this morning was 106/70 4. Hypothyroidism. Continue Synthroid 75 mcg p.o. daily. 5. Bladder program. Currently continent of urine. She does report nocturnal frequency. Physical therapy may try a trial of Kegel exercises to increase pelvic floor muscle strength, which may help with urinary incontinence. 6. Bowel program-PATIENT HAD DIARRHEA LAST P.M. AND WAS NOTIFIED BY NURSING REGARDING THIS. ASKED NURSING TO EXPLAIN TO PATIENT THIS IS MOST LIKELY DUE TO THE EXTENSIVE AMOUNT OF LAXATIVES AND STOOL SOFTENERS THAT SHE RECEIVED IMMEDIATELY PRIOR TO HER DISCHARGE. SHE had her first bowel movement yesterday postoperatively and is having some diarrhea, which is expected to clear in the next day or so and is probably due to the amount of laxative she received prior to transfer. Continue Senokot-S 1-2 tablets p.o. b.i.d. 7. Orthotics: TLSO to be worn out of bed. She can remove it while sleeping. Remove for showering. 8. Celiac disease. She requested diet with no dairy, no soy, no wheat. We will have nursing relay this to dietary. SHE HAS BROUGHT IN HER OWN BOX OF PROBIOTICS WHICH IS CULTURELLE AND I WILL NOTICE BY THE PHARMACY AND PLACE IN ORDER SO THAT SHE CAN RECEIVE THIS. 9. Mild chronic obstructive pulmonary disease/asthma. Currently not taking any medications for this. Will recommend incentive spirometry 10 puffs per hour while awake. According to medical records, she has not used her levalbuterol inhaler since 10/25/2017. However, if she gets shortness of breath or chest tightness, then we may add this to her regimen. 10. Osteoporosis-continue Forteo 2.4 mL subcu daily. I HAVE PLACED AN ORDER FOR THIS. HER WILL BRING IN THEIR OWN SUPPLY. THIS HAS BEEN OKAYED BY NURSING. 11. HORMONAL REPLACEMENT-I HAVE WRITTEN AN ORDER FOR THIS WELL, AND THE FAMILY BROUGHT IN THESE MEDICATIONS FROM HOME, BUT ACCORDING TO NURSING 1 OF THE SYRINGES WAS NOT MARKED AND THEREFORE THEY HAVE TO BRING AND PROPERLY MARKED SUPPLIES. Plan: 11/07/17 09:42 Subjective: WAS NOTIFIED BY NURSING THAT SHE HAD DIARRHEA LAST NIGHT. SHE IS STILL FEELING THE EFFECTS OF ALL THE LAXATIVES AND STOOL SAMPLES THAT SHE RECEIVED. SHE HAS BROUGHT IN A PRIVATE APPLY OF CULTURELLE PROBIOTICS. HER FAMILY IS ALSO BRINGING IN HORMONAL REPLACEMENT CREAM WELL 40 0. HAVE DISCUSSED THIS WITH NURSING. Objective: Vital Signs Temp Pulse Resp BP Pulse Ox 36.6 C 58 L 16 106/70 98 11/07/17 07:48 11/07/17 07:48 11/07/17 07:48 11/07/17 07:48 11/07/17 07:48 11/06/17 11/07/17 11/08/17 05:59 05:59 05:59 Intake Total 500 240 Output Total 1 Balance 499 240 Physical Exam - Physical Exam General Appearance: WD/WN, alert, mild distress, other Respiratory: chest non-tender, lungs clear, respiratory distress Cardiac/Chest: No edema Abdomen: non-tender, soft, other (HYPERACTIVE BOWEL SOUNDS) Skin: other (THORACOLUMBAR INCISION) Extremities: No swelling, No Monty's sign Neuro/Psych: alert, normal mood/affect, motor weakness (DECREASED STRENGTH OF THE RIGHT AND LEFT HIP FLEXORS MORE PRONOUNCED ON THE RIGHT. 3+ 4-/5 RIGHT AND LEFT QUADRICEPS, HAMSTRINGS ANKLE DORSIFLEXORS.) ICD10 Worksheet Patient Problems: Problems Problem Status Onset Pseudoarthrosis of lumbar spine Acute
[2017-11-07] MEDS: ONDANSETRON DISINTEGRATING 4 MG TAB PO PRN ×2 (10:40→17:02)
[2017-11-07] MEDS: TERIPARATIDE SQ SCH (10:48)
[2017-11-07] MEDS ORDERED: LACTOBACILLUS RHAMNOSUS GG PO SCH (11:00)
[2017-11-07] MEDS: LACTOBACILLUS RHAMNOSUS GG PO SCH ×2 (16:02→22:19)
[2017-11-07] MEDS: METHOCARBAMOL 750 MG TAB PO PRN (17:03)
[2017-11-07] MEDS: DIAZEPAM 5 MG TAB PO PRN (17:06)
[2017-11-07] MEDS: TESTOSTERONE TP SCH (22:22)
[2017-11-07] MEDS: [UNRECOGNIZED DRUG - OTHER] TP SCH (22:22)
[2017-11-07] MEDS: PROGESTERONE MICRONIZED 100 MG PO SCH (22:33)
[2017-11-08] MEDS: TAPENTADOL HCL 50 MG TAB PO PRN ×3 (03:34→11:47)
[2017-11-08] MEDS: METHOCARBAMOL 750 MG TAB PO PRN ×2 (03:34→11:47)
[2017-11-08] MEDS: DIAZEPAM 5 MG TAB PO PRN (04:45)
[2017-11-08] MEDS: LACTOBACILLUS RHAMNOSUS GG PO SCH ×3 (08:58→21:42)
[2017-11-08] MEDS: SENNOSIDES/DOCUSATE SODIUM TAB PO SCH ×2 (08:59→19:23)
[2017-11-08] MEDS: LEVOTHYROXINE 75 MCG TAB PO SCH (08:59)
[2017-11-08] MEDS: GABAPENTIN 300 MG CAP PO SCH ×3 (08:59→21:42)
[2017-11-08] MEDS: [UNRECOGNIZED DRUG - OTHER] TP SCH (09:00)
[2017-11-08] MEDS: TERIPARATIDE SQ SCH (09:00)
[2017-11-08] MEDS: COMPOUND TP SCH (09:00)
--- NOTE | 2017-11-08 12:10 | SOAPPROG ---
SOAP Progress Note Assessment/Plan: Assessment: IMPRESSION: A 72-year-old female status post L5-S1 anterior decompression and fusion, status post T12-S2 posterior fusion with postop complications include ileus, hypotension, and significant pain. She is currently medically stable and is suitable for inpatient rehabilitation admission. Expected level of improvement for safe discharge includes moderate independent for all ADLs and functional tasks with the least amount of assistive devices. She will demonstrate ability to maintain spinal precautions throughout ADLs and functional activities. The patient will have bowel movements without issues. Discharge plan is to discharge home with supported services. She will require 90 minutes per day physical therapy, occupational therapy 5-7 days a week for an estimated time of 5-7 days. PLAN: 1. Status post L5-S1 diskectomy and fusion, status post T12-S2 fusion for lumbar spinal stenosis with neurogenic claudication. She currently denies lower extremity pain, radicular symptoms or symptoms consistent with neurogenic claudication. Physical and occupational therapy to address lower and upper extremity strength, respectively and to work in concert to address trunk strength to improve trunk stability and quality of gait. 2. Back pain-continue gabapentin 300 t.i.d. Per the patient's request, we will change Robaxin to 500 mg four times daily regularly scheduled instead of p.r.n.. Will change Nucynta dosage to 100 mg ER q.12 hours and 50 mg immediate release q.4 hours p.r.n., not to exceed a daily dose of 700 mg . 3. History of postoperative hypotension-we will monitor blood pressure q.shift. Unlikely that she will need medications to address this, however, will encourage p.o. fluids. If blood pressure is low during upright activities , then will recommend compressive stockings when she is out of bed. Blood pressure this morning was 106/70 4. Hypothyroidism. Continue Synthroid 75 mcg p.o. daily. 5. Bladder program. Currently continent of urine. She does report nocturnal frequency. Physical therapy may try a trial of Kegel exercises to increase pelvic floor muscle strength, which may help with urinary incontinence. 6. Bowel program-her diarrhea has cleared. Continue Senokot-S 1-2 tablets p.o. b.i.d. 7. Orthotics: TLSO to be worn out of bed. She can remove it while sleeping. Remove for showering. 8. Celiac disease. She requested diet with no dairy, no soy, no wheat. We will have nursing relay this to dietary. SHE HAS BROUGHT IN HER OWN BOX OF PROBIOTICS WHICH IS CULTURELLE AND I WILL NOTICE BY THE PHARMACY AND PLACE IN ORDER SO THAT SHE CAN RECEIVE THIS. 9. Mild chronic obstructive pulmonary disease/asthma. Currently not taking any medications for this. Will recommend incentive spirometry 10 puffs per hour while awake. According to medical records, she has not used her levalbuterol inhaler since 10/25/2017. However, if she gets shortness of breath or chest tightness, then we may add this to her regimen. 10. Osteoporosis-continue Forteo 2.4 mL subcu daily. I HAVE PLACED AN ORDER FOR THIS. HER WILL BRING IN THEIR OWN SUPPLY. THIS HAS BEEN OKAYED BY NURSING. 11. HORMONAL REPLACEMENT-I HAVE WRITTEN AN ORDER FOR THIS WELL, AND THE FAMILY BROUGHT IN THESE MEDICATIONS FROM HOME, BUT ACCORDING TO NURSING 1 OF THE SYRINGES WAS NOT MARKED AND THEREFORE THEY HAVE TO BRING AND PROPERLY MARKED SUPPLIES. Plan: 11/07/17 09:42 11/08/17 12:12 Subjective: She is complaining of bilateral lower extremity pain more pronounced on the left and described in an L5 nerve root distribution. She is requesting more pain medications for this. She is not having much in the way of low back pain or spasms. She reports that her diarrhea has resolved. She denies abdominal pain. Objective: Vital Signs Temp Pulse Resp BP Pulse Ox 36.9 C 65 16 116/69 95 11/08/17 06:04 11/08/17 06:04 11/08/17 06:04 11/08/17 06:04 11/08/17 06:04 11/07/17 11/08/17 11/09/17 05:59 05:59 05:59 Intake Total 500 490 Output Total 1 Balance 499 490 Physical Exam - Physical Exam General Appearance: WD/WN, alert Respiratory: lungs clear, normal breath sounds Abdomen: normal bowel sounds, non-tender Back: Other (Lumbosacral corset in place.) Skin: other (Abdominal incision-and dressing has been removed. No drainage at incisional site. Incision along with thoraco lumbar region, sutures in place. No drainage or erythema.) Extremities: No swelling, No Monty's sign Neuro/Psych: motor weakness (4/5 right and left hip flexors while seated, quadriceps, hamstrings, tibialis anterior. No ankle clonus.) ICD10 Worksheet Patient Problems: Problems Problem Status Onset Pseudoarthrosis of lumbar spine Acute
--- NOTE | 2017-11-08 13:13 | PDOREHIP ---
Admission [facility] - Admission - 3 Day Assessment Period Admission Date/Day 1: 11/06/17 Day 2: 11/07/17 Day 3: 11/08/17 - Active Diagnoses Comorbidities and Co-existing Conditions at Admission: 08625. None of the Above - Skin Conditions # Stage 1 Pressure Ulcers-Admission: 0 # Stage 2 Pressure Ulcers-Admission: 0 # Stage 3 Pressure Ulcers-Admission: 0 # Stage 4 Pressure Ulcers-Admission: 0 # Unstageable Pressure Ulcers (Non-remove Dress)-Admission: 0 # Unstageable Pressure Ulcers (Slough/Eschar)-Admission: 0 # Unstageable Pressure Ulcers (Deep Tissue Injury)-Admission: 0 Discharge [facility] - Discharge - 3 Day Assessment Period 2 Days Prior to Anticipated Discharge Date: 11/09/17 1 Day Prior to Anticipated Discharge Date: 11/10/17 Anticipated Discharge Date: 11/11/17
[2017-11-08] MEDS ORDERED: TAPENTADOL HCL 50 MG TAB PO PRN (13:28)
[2017-11-08] MEDS: METHOCARBAMOL 500 MG TAB PO SCH ×3 (13:34→19:23)
[2017-11-08] MEDS: ACETAMINOPHEN 325 MG TAB PO PRN ×2 (13:35→17:38)
[2017-11-08] MEDS ORDERED: METHOCARBAMOL 750 MG TAB PO SCH (16:00)
[2017-11-08] MEDS: ONDANSETRON DISINTEGRATING 4 MG TAB PO PRN (16:27)
[2017-11-08] MEDS: TAPENTADOL HCL 50 MG TAB PO SCH (19:23)
[2017-11-08] MEDS: [UNRECOGNIZED DRUG - OTHER] TP SCH (21:46)
[2017-11-08] MEDS: TESTOSTERONE TP SCH (21:46)
[2017-11-09] MEDS: PROGESTERONE MICRONIZED 100 MG PO SCH (00:09)
[2017-11-09] MEDS: ACETAMINOPHEN 325 MG TAB PO PRN (01:14)
[2017-11-09] MEDS: METHOCARBAMOL 500 MG TAB PO SCH ×4 (06:25→20:32)
[2017-11-09] MEDS: TAPENTADOL HCL 50 MG TAB PO SCH ×2 (06:25→18:55)
[2017-11-09] MEDS: [UNRECOGNIZED DRUG - OTHER] TP SCH (07:59)
[2017-11-09] MEDS: LEVOTHYROXINE 75 MCG TAB PO SCH (07:59)
[2017-11-09] MEDS: COMPOUND TP SCH (07:59)
[2017-11-09] MEDS: ONDANSETRON DISINTEGRATING 4 MG TAB PO PRN (07:59)
[2017-11-09] MEDS: GABAPENTIN 300 MG CAP PO SCH ×3 (07:59→20:32)
[2017-11-09] MEDS: SENNOSIDES/DOCUSATE SODIUM TAB PO SCH (07:59)
[2017-11-09] MEDS: LACTOBACILLUS RHAMNOSUS GG PO SCH ×3 (08:00→20:31)
[2017-11-09] MEDS: TERIPARATIDE SQ SCH (08:05)
--- NOTE | 2017-11-09 10:00 | SOAPPROG ---
SOAP Progress Note Assessment/Plan: Assessment/Plan: Ms. Suggs is year-old female status post L5-S1 anterior decompression and fusion, status post T12-S2 posterior fusion with postop complications include ileus, hypotension, and significant pain. Expected level of improvement for safe discharge includes moderate independent for all ADLs and functional tasks with the least amount of assistive devices. She will demonstrate ability to maintain spinal precautions throughout ADLs and functional activities. The patient will have bowel movements without issues. Discharge plan is to discharge home with supported services. She will require 90 minutes per day physical therapy, occupational therapy 5-7 days a week for an estimated time of 5-7 days. PLAN: 1. Status post L5-S1 diskectomy and fusion, status post T12-S2 fusion for lumbar spinal stenosis with neurogenic claudication. She currently denies lower extremity pain, radicular symptoms or symptoms consistent with neurogenic claudication. Physical and occupational therapy to address lower and upper extremity strength, respectively and to work in concert to address trunk strength to improve trunk stability and quality of gait. 2. Back pain-continue gabapentin 300 t.i.d. Per the patient's request, we will change Robaxin to 500 mg four times daily regularly scheduled instead of p.r.n.. Will change Nucynta dosage to 100 mg ER q.12 hours and 50 mg immediate release q.4 hours p.r.n., not to exceed a daily dose of 700 mg 3. History of postoperative hypotension-we will monitor blood pressure q.shift. Unlikely that she will need medications to address this, however, will encourage p.o. fluids. If blood pressure is low during upright activities , then will recommend compressive stockings when she is out of bed. Blood pressure this morning was 106/70 4. Hypothyroidism. Continue Synthroid 75 mcg p.o. daily. 5. Bladder program. Currently continent of urine. She does report nocturnal frequency. Physical therapy may try a trial of Kegel exercises to increase pelvic floor muscle strength, which may help with urinary incontinence. 6. Bowel program-her diarrhea has cleared. Continue Senokot-S 1-2 tablets p.o. b.i.d. 7. Orthotics: TLSO to be worn out of bed. She can remove it while sleeping. Remove for showering. 8. Celiac disease. She requested diet with no dairy, no soy, no wheat. We will have nursing relay this to dietary. SHE HAS BROUGHT IN HER OWN BOX OF PROBIOTICS WHICH IS CULTURELLE AND I WILL NOTICE BY THE PHARMACY AND PLACE IN ORDER SO THAT SHE CAN RECEIVE THIS. 9. Mild chronic obstructive pulmonary disease/asthma. Currently not taking any medications for this. Will recommend incentive spirometry 10 puffs per hour while awake. According to medical records, she has not used her levalbuterol inhaler since 10/25/2017. However, if she gets shortness of breath or chest tightness, then we may add this to her regimen. 10. Osteoporosis-continue Forteo 2.4 mL subcu daily. I HAVE PLACED AN ORDER FOR THIS. HER WILL BRING IN THEIR OWN SUPPLY. THIS HAS BEEN OKAYED BY NURSING. 11. HORMONAL REPLACEMENT-I HAVE WRITTEN AN ORDER FOR THIS WELL, AND THE FAMILY BROUGHT IN THESE MEDICATIONS FROM HOME, BUT ACCORDING TO NURSING 1 OF THE SYRINGES WAS NOT MARKED AND THEREFORE THEY HAVE TO BRING AND PROPERLY MARKED SUPPLIES. Today's Plan: Pt reports that responding well to the recent changes in the pain meds - leave for now. Regarding bowel movements - discussed trial of relistor - would like to hold off for now but would rather trial med management for now. Will add back the lidocaine patches. UA was drawn - pt having increased frequency with no other symptoms. Will await results 11/09/17 09:57 Subjective: Feeling better this morning- feels like this am doing well and the pain is much better controlled. She is still having focal pain locally over the incision area but otherwise doing pretty well - Sister and present - concerned that hasn't had a BM x2 days. Pt not reporting any discomfort- maybe a little fullness. We discussed different management options/approaches. hoping to have a good regimen she can home on. Objective: Vital Signs Temp Pulse Resp BP Pulse Ox 36.5 C 71 18 109/63 100 11/09/17 08:00 11/09/17 08:00 11/09/17 08:00 11/09/17 08:00 11/09/17 08:00 11/08/17 11/09/17 11/10/17 05:59 05:59 06:59 Intake Total 490 800 Output Total 1 Balance 490 799 Physical Exam - Physical Exam General Appearance: alert, no apparent distress Respiratory: lungs clear, normal breath sounds Cardiac/Chest: regular rate, rhythm Abdomen: non-tender, soft, other (Slightly hypoactive bowel sounds) Skin: normal color Extremities: non-tender Neuro/Psych: normal mood/affect, oriented x 3 ICD10 Worksheet Patient Problems: Problems Problem Status Onset Pseudoarthrosis of lumbar spine Acute
[2017-11-09] MEDS ORDERED: BISACODYL 10 MG SUPP PR PRN (10:12)
[2017-11-09] MEDS: LIDOCAINE 4%/MENTHOL 1% PATCH TD SCH (10:26)
[2017-11-09] MEDS: TAPENTADOL HCL 50 MG TAB PO PRN ×2 (11:59→16:01)
[2017-11-09] MEDS ORDERED: SENNOSIDES 1 TAB PO ONE (12:00)
[2017-11-09] MEDS: DOCUSATE SODIUM 100 MG CAP PO SCH (20:32)
[2017-11-10] MEDS: ACETAMINOPHEN 325 MG TAB PO PRN (01:38)
[2017-11-10] MEDS: TESTOSTERONE TP SCH ×2 (01:41→19:53)
[2017-11-10] MEDS: PATCH REMOVAL 1 EA PATCH TD SCH ×2 (01:41→19:53)
[2017-11-10] MEDS: [UNRECOGNIZED DRUG - OTHER] TP SCH ×2 (01:41→19:53)
[2017-11-10] MEDS: PROGESTERONE MICRONIZED 100 MG PO SCH ×2 (01:41→19:53)
[2017-11-10] MEDS: TAPENTADOL HCL 50 MG TAB PO SCH ×2 (06:07→19:48)
[2017-11-10] MEDS: METHOCARBAMOL 500 MG TAB PO SCH ×4 (06:10→19:47)
[2017-11-10] MEDS: LEVOTHYROXINE 75 MCG TAB PO SCH (07:26)
[2017-11-10] MEDS: [UNRECOGNIZED DRUG - OTHER] TP SCH (08:37)
[2017-11-10] MEDS: COMPOUND TP SCH (08:37)
[2017-11-10] MEDS: GABAPENTIN 300 MG CAP PO SCH ×3 (08:39→19:47)
[2017-11-10] MEDS: DOCUSATE SODIUM 100 MG CAP PO SCH ×2 (08:39→19:52)
[2017-11-10] MEDS: TERIPARATIDE SQ SCH (08:40)
[2017-11-10] MEDS: LIDOCAINE 4%/MENTHOL 1% PATCH TD SCH (08:40)
[2017-11-10] MEDS: LACTOBACILLUS RHAMNOSUS GG PO SCH ×3 (08:40→19:49)
--- NOTE | 2017-11-10 10:18 | SOAPPROG ---
SOAP Progress Note Assessment/Plan: Assessment/Plan: Ms. Suggs is year-old female status post L5-S1 anterior decompression and fusion, status post T12-S2 posterior fusion with postop complications include ileus, hypotension, and significant pain. Expected level of improvement for safe discharge includes moderate independent for all ADLs and functional tasks with the least amount of assistive devices. She will demonstrate ability to maintain spinal precautions throughout ADLs and functional activities. The patient will have bowel movements without issues. Discharge plan is to discharge home with supported services. She will require 90 minutes per day physical therapy, occupational therapy 5-7 days a week for an estimated time of 5-7 days. PLAN: 1. Status post L5-S1 diskectomy and fusion, status post T12-S2 fusion for lumbar spinal stenosis with neurogenic claudication. She currently denies lower extremity pain, radicular symptoms or symptoms consistent with neurogenic claudication. Physical and occupational therapy to address lower and upper extremity strength, respectively and to work in concert to address trunk strength to improve trunk stability and quality of gait. 2. Back pain-continue gabapentin 300 t.i.d. Per the patient's request, we will change Robaxin to 500 mg four times daily regularly scheduled instead of p.r.n.. Will change Nucynta dosage to 100 mg ER q.12 hours and 50 mg immediate release q.4 hours p.r.n., not to exceed a daily dose of 700 mg 3. History of postoperative hypotension-we will monitor blood pressure q.shift. Unlikely that she will need medications to address this, however, will encourage p.o. fluids. If blood pressure is low during upright activities , then will recommend compressive stockings when she is out of bed. Blood pressure this morning was 106/70 4. Hypothyroidism. Continue Synthroid 75 mcg p.o. daily. 5. Bladder program. Currently continent of urine. She does report nocturnal frequency. Physical therapy may try a trial of Kegel exercises to increase pelvic floor muscle strength, which may help with urinary incontinence. 6. Bowel program-her diarrhea has cleared. Senna 3 tabs q noon, BID colace, Prn suppository 7. Orthotics: TLSO to be worn out of bed. She can remove it while sleeping. Remove for showering. 8. Celiac disease. She requested diet with no dairy, no soy, no wheat. We will have nursing relay this to dietary. SHE HAS BROUGHT IN HER OWN BOX OF PROBIOTICS WHICH IS CULTURELLE AND I WILL NOTICE BY THE PHARMACY AND PLACE IN ORDER SO THAT SHE CAN RECEIVE THIS. 9. Mild chronic obstructive pulmonary disease/asthma. Currently not taking any medications for this. Will recommend incentive spirometry 10 puffs per hour while awake. According to medical records, she has not used her levalbuterol inhaler since 10/25/2017. However, if she gets shortness of breath or chest tightness, then we may add this to her regimen. 10. Osteoporosis-continue Forteo 2.4 mL subcu daily. I HAVE PLACED AN ORDER FOR THIS. HER WILL BRING IN THEIR OWN SUPPLY. THIS HAS BEEN OKAYED BY NURSING. 11. HORMONAL REPLACEMENT-I HAVE WRITTEN AN ORDER FOR THIS WELL, AND THE FAMILY BROUGHT IN THESE MEDICATIONS FROM HOME, BUT ACCORDING TO NURSING 1 OF THE SYRINGES WAS NOT MARKED AND THEREFORE THEY HAVE TO BRING AND PROPERLY MARKED SUPPLIES. Today's Plan: No bowel results yet - passing more gas. Will add relistor to today as well as enema - currently x4 days since last bm. Utilize heat for muscle cramping in the right hip flexor region. Team to discuss pt's discharge plan - is ready for tomorrow but family feeling concerned - Hoping to discuss further. 11/10/17 10:18 Subjective: Feeling bloated still - didn't have a BM yet. Does feel like things are working better but just has a " watermelon trying to exit a garden hose". Also noticing pain in the right anterior hip - spreads about prison down the thigh. Reported that this use to be in the left hip which has improved but now on the right. Not sure if just overdid it yesterday with therarpy but makes it difficult to stand straight up. No fevers, no strength changes, no sensory changess Objective: Vital Signs Temp Pulse Resp BP Pulse Ox 36.5 C 57 L 18 104/56 L 94 11/10/17 08:00 11/10/17 08:00 11/10/17 08:00 11/10/17 08:00 11/09/17 19:01 Laboratory Results 11/10/17 06:00 11/10/17 06:00 11/09/17 11/10/17 11/11/17 04:59 05:59 05:59 Intake Total Output Total Balance Physical Exam - Physical Exam General Appearance: alert, no apparent distress Respiratory: lungs clear, normal breath sounds Cardiac/Chest: regular rate, rhythm Abdomen: other (soft although mildly distended. +BS) Extremities: non-tender, other (no swelling) Neuro/Psych: normal mood/affect, oriented x 3 ICD10 Worksheet Patient Problems: Problems Problem Status Onset Pseudoarthrosis of lumbar spine Acute
[2017-11-10] MEDS: SENNOSIDES 1 TAB PO SCH (12:16)
[2017-11-10] MEDS: TAPENTADOL HCL 50 MG TAB PO PRN ×2 (12:17→13:51)
[2017-11-10] MEDS ORDERED: ACETAMINOPHEN 500 MG TAB PO PRN (13:50)
[2017-11-10] MEDS ORDERED: TAPENTADOL HCL 50 MG TAB PO ONE (14:00)
[2017-11-10] MEDS ORDERED: METHYLNALTREXONE BROMIDE 12 MG/0.6 ML INJ SC ONE (16:30)
[2017-11-11] MEDS: TAPENTADOL HCL 50 MG TAB PO SCH ×2 (06:28→19:08)
[2017-11-11] MEDS: METHOCARBAMOL 500 MG TAB PO SCH ×4 (06:28→21:14)
[2017-11-11] MEDS: LEVOTHYROXINE 75 MCG TAB PO SCH (06:54)
[2017-11-11] MEDS: COMPOUND TP SCH (08:00)
[2017-11-11] MEDS: GABAPENTIN 300 MG CAP PO SCH ×3 (08:00→21:14)
[2017-11-11] MEDS: [UNRECOGNIZED DRUG - OTHER] TP SCH (08:00)
[2017-11-11] MEDS: LIDOCAINE 4%/MENTHOL 1% PATCH TD SCH (08:00)
[2017-11-11] MEDS: DOCUSATE SODIUM 100 MG CAP PO SCH ×2 (08:00→21:14)
[2017-11-11] MEDS: LACTOBACILLUS RHAMNOSUS GG PO SCH ×4 (08:01→21:21)
[2017-11-11] MEDS: TERIPARATIDE SQ SCH (08:12)
[2017-11-11] MEDS: SENNOSIDES 1 TAB PO SCH (09:00)
[2017-11-11] MEDS: TAPENTADOL HCL 50 MG TAB PO PRN (11:39)
[2017-11-11] MEDS ORDERED: MAGNESIUM CITRATE 300 ML BOTTLE PO ONE ×2 (13:31→15:45)
--- NOTE | 2017-11-11 13:44 | SOAPPROG ---
SOAP Progress Note Assessment/Plan: Assessment: IMPRESSION: A 72-year-old female status post L5-S1 anterior decompression and fusion, status post T12-S2 posterior fusion with postop complications include ileus, hypotension, and significant pain. She is currently medically stable and is suitable for inpatient rehabilitation admission. Expected level of improvement for safe discharge includes moderate independent for all ADLs and functional tasks with the least amount of assistive devices. She will demonstrate ability to maintain spinal precautions throughout ADLs and functional activities. The patient will have bowel movements without issues. Discharge plan is to discharge home with supported services. She will require 90 minutes per day physical therapy, occupational therapy 5-7 days a week for an estimated time of 5-7 days. PLAN: 1. Status post L5-S1 diskectomy and fusion, status post T12-S2 fusion for lumbar spinal stenosis with neurogenic claudication. She currently denies lower extremity pain, radicular symptoms or symptoms consistent with neurogenic claudication. Physical and occupational therapy to address lower and upper extremity strength, respectively and to work in concert to address trunk strength to improve trunk stability and quality of gait. 2. Back pain-continue gabapentin 300 t.i.d. Per the patient's request, we will change Robaxin to 500 mg four times daily regularly scheduled instead of p.r.n.. She is currently receiving Nucynta 100 mg ER q.12 hours with 100 mg immediate release scheduled in between as a p.r.n. which was ordered by Dr. Ferrer over the weekend. She did not seem to get relief with the previous schedule of Nucynta 100 mg q.12 hours with 50 mg Q 4 p.r.n. scheduled in between. . 3. History of postoperative hypotension-we will monitor blood pressure q.shift. Unlikely that she will need medications to address this, however, will encourage p.o. fluids. If blood pressure is low during upright activities , then will recommend compressive stockings when she is out of bed. Blood pressure this morning was 106/70 4. Hypothyroidism. Continue Synthroid 75 mcg p.o. daily. 5. Bladder program. Currently continent of urine. She does report nocturnal frequency. Physical therapy may try a trial of Kegel exercises to increase pelvic floor muscle strength, which may help with urinary incontinence. 6. Bowel program-she has not had a bowel movement in 4 days. Yesterday she received a Dulcolax suppository at 6:00 a.m., 3 Senokot at 12 noon, Relistor injection at 4:30 p.m. And a fleets enema at 5:30 p.m. Today in order was refer her to receive Mag citrate at 1:00 p.m.. 7. Orthotics: TLSO to be worn out of bed. She can remove it while sleeping. Remove for showering. 8. Celiac disease. She requested diet with no dairy, no soy, no wheat. We will have nursing relay this to dietary. SHE HAS BROUGHT IN HER OWN BOX OF PROBIOTICS WHICH IS CULTURELLE AND I WILL NOTICE BY THE PHARMACY AND PLACE IN ORDER SO THAT SHE CAN RECEIVE THIS. 9. Mild chronic obstructive pulmonary disease/asthma. Currently not taking any medications for this. Will recommend incentive spirometry 10 puffs per hour while awake. According to medical records, she has not used her levalbuterol inhaler since 10/25/2017. However, if she gets shortness of breath or chest tightness, then we may add this to her regimen. 10. Osteoporosis-continue Forteo 2.4 mL subcu daily. I HAVE PLACED AN ORDER FOR THIS. HER WILL BRING IN THEIR OWN SUPPLY. THIS HAS BEEN OKAYED BY NURSING. 11. HORMONAL REPLACEMENT-I HAVE WRITTEN AN ORDER FOR THIS WELL, AND THE FAMILY BROUGHT IN THESE MEDICATIONS FROM HOME, BUT ACCORDING TO NURSING 1 OF THE SYRINGES WAS NOT MARKED AND THEREFORE THEY HAVE TO BRING AND PROPERLY MARKED SUPPLIES. She was supposed to be discharged today, however due to family concerns and of bowel movement, her discharge was postponed until 11/12. Labs from yesterday: Hemoglobin 10.3, hematocrit 30.9 white blood count 7.5 platelets 409. Sodium 40 potassium 4.4 BUN 8 creatinine 0.6 Plan: 11/07/17 09:42 11/08/17 12:12 11/11/17 13:44 11/11/17 13:51 Subjective: She reports that she has not had a bowel movement in 4 days. Yesterday she received Dulcolax suppository at 6 am, 3 Senokot at 12 noon, Relistor at 4:30 p.m. And a Fleet's enema at 5:30 p.m.. She states that she passed a lot of gas but has not had a bowel movement. She reports a little bit of abdominal discomfort this morning. She reports that her pain is currently well managed. Objective: Vital Signs Temp Pulse Resp BP Pulse Ox 36.3 C 62 18 111/61 93 11/11/17 08:40 11/11/17 08:00 11/11/17 08:00 11/11/17 08:00 11/11/17 08:00 Laboratory Results 11/10/17 06:00 11/10/17 06:00 11/10/17 11/11/17 11/12/17 05:59 05:59 05:59 Intake Total 200 100 Balance 200 100 Physical Exam - Physical Exam General Appearance: WD/WN, alert, no apparent distress Respiratory: lungs clear, normal breath sounds Abdomen: non-tender, soft, other (Hyperactive bowel sounds all 4 quadrants), No rebound, No mass Skin: other (Skin incision thoracolumbar spine looks good, no drainage.) ICD10 Worksheet Patient Problems: Problems Problem Status Onset Pseudoarthrosis of lumbar spine Acute
[2017-11-11 21:12] VITALS: RESP 16
[2017-11-11] MEDS: PATCH REMOVAL 1 EA PATCH TD SCH (21:14)
[2017-11-11] MEDS: TESTOSTERONE TP SCH (21:14)
[2017-11-11] MEDS: [UNRECOGNIZED DRUG - OTHER] TP SCH (21:14)
[2017-11-11] MEDS: PROGESTERONE MICRONIZED 100 MG PO SCH (21:15)
[2017-11-12] MEDS: TAPENTADOL HCL 50 MG TAB PO SCH (06:35)
[2017-11-12] MEDS: METHOCARBAMOL 500 MG TAB PO SCH ×2 (06:36→12:20)
[2017-11-12] MEDS: LEVOTHYROXINE 75 MCG TAB PO SCH (07:48)
[2017-11-12] MEDS: LIDOCAINE 4%/MENTHOL 1% PATCH TD SCH (07:49)
[2017-11-12] MEDS: LACTOBACILLUS RHAMNOSUS GG PO SCH (07:50)
[2017-11-12] MEDS: [UNRECOGNIZED DRUG - OTHER] TP SCH (07:50)
[2017-11-12] MEDS: COMPOUND TP SCH (07:50)
[2017-11-12] MEDS: GABAPENTIN 300 MG CAP PO SCH (07:50)
[2017-11-12] MEDS: SENNOSIDES 1 TAB PO SCH (07:51)
[2017-11-12] MEDS: DOCUSATE SODIUM 100 MG CAP PO SCH (07:51)
[2017-11-12] MEDS: TERIPARATIDE SQ SCH (07:52)
[2017-11-12 08:20] VITALS: BP 98/60; PULSE 62; TEMP 98.4; O2SAT 99
[2017-11-12] MEDS: TAPENTADOL HCL 50 MG TAB PO PRN (12:19)
--- NOTE | 2017-11-12 13:35 | GDS ---
[f rep st] DISCHARGE SUMMARY ADMITTING DIAGNOSIS: Debility status post L5-S1 anterior decompression and fusion and T12-S2 posterior fusion. DISCHARGE DIAGNOSIS: Debility status post L5-S1 anterior decompression and fusion and T12-S2 posterior fusion. Other discharge diagnoses: 1. Constipation. 2. Back pain. CONSULTATIONS: None. PROCEDURES: None. COMPLICATIONS: None. HISTORY AND HOSPITAL COURSE: This patient was admitted after thoracic and lumbar spine surgery. She had previous spinal fusion in 2013. After her surgery, she was needing minimal assist with bathing, standby assist with grooming and dressing, standby assist for toileting and assistance for leonora care. She participated in physical and occupational therapies and regained independence to modified independence with mobility and activities of daily living. She had ambulated 300 feet independently with a front-wheeled walker. She had climbed and descended 18 steps independently. She was independent in climbing 1 curb step using a front-wheeled walker. Regarding activities of daily living, she was independent with grooming and hygiene. She required standby assist for bathing. She was independent with upper body dressing and modified independent with assistive devices for lower body dressing. She was able to perform tub/shower transfer with standby assist and was able to perform kitchen and laundry tasks with standby assist. She had pain during her stay and required titration of tapentadol and scheduling of methocarbamol. She had constipation, which was refractory to bisacodyl suppositories, senna and methylnaltrexone, but eventually responded to magnesium citrate. PHYSICAL EXAM: On the day of discharge: VITAL SIGNS: Blood pressure is 98/60, heart rate is 62, respiratory rate is 16 , oxygen saturation is 99% on room air. Temperature is 36.9 degrees centigrade. GENERAL: This is a well-nourished, well-developed woman sitting up on the edge of the bed, ready to go home. HEART: There is regular rate and rhythm with no murmurs, rubs, or gallops. LUNGS: Clear to auscultation bilaterally. ABDOMEN: Benign. NEUROLOGIC: She is alert and oriented x3. Cranial nerves 2-12 are grossly intact and she has a normal gait with a front-wheeled walker. LABORATORY DATA: Labs and studies during her stay, on 11/10/2017 CBC revealed anemia with a hemoglobin of 10.3, hematocrit of 30.9. This was overall stable during her hospitalization. During hospitalization, postoperatively, hemoglobin and hematocrit were 8.3 and 24.4. Serum chemistry revealed normal renal function and electrolytes. She had a low BUN at 6 and a low calcium of 8.4. Urinalysis was completely normal. DISCHARGE PLAN: Condition upon discharge is good. Activity is ad liz, but to continue wearing a TLSO when out of bed. Diet: Continue soy-free, gluten-free , celiac diet. For her next appointment, she is to follow up with her primary care provider, Dr. Kiet Gregory, in approximately 2 weeks and with neurosurgeon , Dr. Tam Castro, on 11/15/2017. MEDICATIONS AT DISCHARGE: 1. Diazepam 5 mg p.o. twice daily p.r.n. 2. Ondansetron 4 mg p.o. q.6 hours p.r.n. 3. Tapentadol 100 mg p.o. twice daily. 4. Methocarbamol 500 mg four times daily p.r.n. 5. Fluticasone nasal daily p.r.n. 6. Gabapentin 300 mg p.o. three times daily. 7. Leave albuterol 1 puff daily p.r.n. 8. Levothyroxine 75 mcg p.o. daily. 9. Several medications are listed as discontinued, but I believe she will continue them. These are omega-3 fatty acids 1000 mg daily, Biest Plus testosterone cream topical at bedtime and daily. 10. Teriparatide 2.4 mL subcutaneous daily. 11. Senna/docusate. 12. Lactobacillus supplement. 13. Prometrium 100 mg p.o. at bedtime. ISSUES TO BE ADDRESSED AT FOLLOWUP: 1. Functional status. She will continue home health, PT and OT. She can follow up with Dr. Gregory regarding her progress. 2. Pain management. It is anticipated that as she continues to recover from her surgery, her pain will decrease and she is planning to decrease the tapentadol. 3. Constipation has finally responded to magnesium citrate. She should continue her current laxatives and she can follow up with Dr. Gregory regarding her need. It is hoped that she has less constipation as her pain improves. Greater than 30 min floor time on this discharge including medication and record review, coordination of care and counseling patient. /[id number]/MODL MTDD
== END 2017-11-12 12:49 | disposition home health service (06) | DRG 950 ==
LOC: BREH 16:43
PROVIDERS: ADMIT Physical Medicine & Rehabilitation; ATTEND Physical Medicine & Rehabilitation
PROC: F0636ZZ Communicative/Cognitive Integration Skills Treatment of Neurological System - Whole Body (ICD-10-PCS; principal; 2017-11-06)
PROC: F07M3ZZ Motor Function Treatment of Musculoskeletal System - Whole Body (ICD-10-PCS; principal; 2017-11-06)
DX: Z48.811 Encounter for surgical aftercare following surgery on the nervous system (principal); Z98.1 Arthrodesis status; E03.9 Hypothyroidism, unspecified; J44.9 Chronic obstructive pulmonary disease, unspecified; J45.909 Unspecified asthma, uncomplicated; M81.0 Age-related osteoporosis without current pathological fracture; K90.0 Celiac disease
CPT/HCPCS: 97110-GO; 97110-GP; 97116-GP; 97161-GP; 97166-GO; 97530-GO; 97530-GP; 97535-GO; J2212